=== PATIENT | male | born 1950 | race Caucasian/White ===

== ENCOUNTER → 2017-02-15 | Outpatient (CLI) | payer OTHER, BC | LOC: BHFA 09:00 | PROVIDERS: ATTEND Internal Medicine Cardiovascular Disease | DX: I25.10 Atherosclerotic heart disease of native coronary artery without angina pectoris (principal); R00.2 Palpitations ==

== ENCOUNTER 2017-04-10 01:31 | Inpatient (IN) | payer OTHER, BC ==
[2017-04-10] MEDS ORDERED: NS 1,000 ML IV ONE (01:49)
--- NOTE | 2017-04-10 01:50 | EDPHY ---
H & P Stated Complaint: chest pain HPI/ROS: HPI CHIEF COMPLAINT: Chest pain HISTORY OF PRESENT ILLNESS: This patient is 66-year-old male he presents emergency room with chest discomfort. Patient states that this started this evening. Describes a burning sensation in the middle of his chest. It radiates through his chest. States he had a very heavy meal this evening. He has a hiatal hernia he thinks hiatal hernia is acting up. The pain does go to his back. He has not had any vomiting. Denies shortness of breath. He denies any heart disease or lung disease or history of stroke. Patient states he has a hiatal hernia. Burning sensation in his chest. Past Medical History: Hiatal hernia, hypertension, hyperlipidemia Past Surgical History: Appendectomy Social History: Denies daily use drugs alcohol tobacco products. Locally. Family History: Noncontributory ROS REVIEW OF SYSTEMS: A comprehensive 10 point review of systems is otherwise negative aside from elements mentioned in the history of present illness. Exam Constitutional triage nursing summary reviewed, vital signs reviewed, awake/ alert. Eyes normal conjunctivae and sclera, EOMI, PERRLA. HENT normal inspection, atraumatic, moist mucus membranes, no epistaxis, neck supple/ no meningismus, no raccoon eyes. Respiratory clear to auscultation bilaterally, normal breath sounds, no respiratory distress, no wheezing. Cardiovascular rate normal, regular rhythm, no murmur, no edema, distal pulses normal. Gastrointestinal soft, non-tender, no rebound, no guarding, normal bowel sounds, no distension, no pulsatile mass. Genitourinary no CVA tenderness. Musculoskeletal no midline vertebral tenderness, full range of motion, no calf swelling, no tenderness of extremities, no meningismus, good pulses, neurovascularly intact. Skin pink, warm, & dry, no rash, skin atraumatic. Neurologic awake, alert and oriented x 3, AAOx3, moves all 4 extremities equally, motor intact, sensory intact, CN II-XII intact, normal cerebellar, normal vision, normal speech. Psychiatric normal mood/affect. Heme/Lymph/Immune no lymphadenopathy. Differential diagnosis includes but is not limited to: ACS, atypical chest pain , pneumothorax, pneumonia, pulmonary embolism, aortic dissection, congestive heart failure, tumor, musculoskeletal pain, esophageal pain, GERD, peptic ulcer disease, pancreatitis Medical Decision Making: Plan for this patient full monitoring engineer, IV establishment with IV fluid bolus, EKG, chest x-ray, blood work including troponin. Rule out acute coronary syndrome. Re-evaluation: Patient reports that approximately 10-12 years ago he did have a cardiac catheterization. He is followed by Dr. Dylan Carty. EKG interpretation by me on record in [employer] system. Impression time of EKG 1:45 a.m., this is a junctional tachycardia rate of 148. T-wave abnormalities in the lateral leads specifically lead 1, aVL, V4, V5 V6. Biphasic T-waves V2 V3. No old EKG to compare this to. No ST elevation. 0204: Will consult Dr. Dylan Carty. 0252: I spoke with Dr. Franc Vergara who reviewed this EKG. He believes this is SVT with aberrancy. Recommends adenosine versus cardioversion. I discussed this at length with the patient patient agrees for adenosine 1st to see if we can break his cardiac arrhythmia. He is having some chest discomfort. His troponin is noted to be positive. 0325AM: This patient was given 6 mg IV adenosine. This slowed his heart rate down. Underlying atrial flutter rhythm present. Additionally he went back into SVT at 150 beats per minute. He tolerated the adenosine push very well. He was given another 12 mg of adenosine which gave him a rather long pause with underlying a flutter. He returned back to heart rate of 150s. Did consult Dr. Franc Vergara again. He reviewed the rhythm strip underlying a flutter. Recommends diltiazem and diltiazem drip. Patient be admitted to the hospitalist service for elevated troponin SVT most likely underlying a flutter. ED x-ray chest one view: Negative for acute cardiopulmonary disease. 0354: Re-evaluation this patient at this time. No acute distress. Chest pain- free. Admitted to the hospitalist service for SVT with a positive troponin. 1 milligram/kilogram of Lovenox was given. I spoke with Dr. gupta who agrees to admit this patient. Spoke with Dr. Franc Vergara him multiple times about this patient's case. Source: Patient - Personal History Current Tetanus Diphtheria and Acellular Pertussis (TDAP): Yes - Medical/Surgical History Hx Asthma: No Hx Chronic Respiratory Disease: No Hx Diabetes: No Hx Cardiac Disease: Yes Hx Renal Disease: No Hx Cirrhosis: No Hx Alcoholism: No Hx HIV/AIDS: No Hx Splenectomy or Spleen Trauma: No Other PMH: hiatial hernia - Social History Smoking Status: Never smoked Constitutional: Initial Vital Signs Temperature (C) 36.6 C 04/10/17 01:36 Heart Rate 149 H 04/10/17 01:36 Respiratory Rate 16 04/10/17 01:36 Blood Pressure 161/110 H 04/10/17 01:36 O2 Sat (%) 98 04/10/17 01:36 O2 Delivery Mode Room Air Allergies/Adverse Reactions: ciprofloxacin [From Cipro] Allergy (Severe, Verified 04/10/17 08:42) Hives Home Medications: Medication Instructions Recorded Aspirin EC [Aspirin EC 81 mg (*)] 81 mg PO DAILY 04/10/17 Atorvastatin Calcium [Lipitor 20 20 mg PO DAILY 04/10/17 mg (*)] Omeprazole [Prilosec 20 mg] 20 mg PO DAILY 04/10/17 Apixaban [Eliquis] 5 mg PO BID #60 tab 04/11/17 Metoprolol Succinate Xr [Toprol Xl 25 mg PO BID #60 tab.sr 04/11/17 25 mg (*)] Medical Decision Making - Data Points Laboratory Results: Laboratory Results 04/10/17 01:55 04/10/17 01:55 Medications Given: Discontinued Medications Adenosine (Adenosine) 6 mg IVP EDNOW ONE Stop: 04/10/17 02:58 Last Admin: 04/10/17 02:59 Dose: 6 mg Adenosine (Adenosine) 12 mg IVP EDNOW ONE Stop: 04/10/17 03:25 Last Admin: 04/10/17 03:26 Dose: 12 mg Al Hydroxide/Mg Hydroxide (Maalox Susp) 30 ml PO ONCE ONE Stop: 04/10/17 02:01 Last Admin: 04/10/17 02:07 Dose: 30 ml Aspirin Buffered (Aspirin Ec) 325 mg PO ONCALL ONE Stop: 04/10/17 12:28 Last Admin: 04/11/17 18:09 Dose: Not Given Aspirin Buffered (Aspirin Ec) 81 mg PO DAILY SHANE Stop: 10/08/17 08:59 Last Admin: 04/11/17 18:09 Dose: Not Given Atorvastatin Calcium (Lipitor) 20 mg PO DAILY [facility] Stop: 10/08/17 08:59 Last Admin: 04/11/17 18:09 Dose: Not Given Carvedilol (Coreg) 3.125 mg PO BIDMEAL SHANE Stop: 10/07/17 11:14 Last Admin: 04/11/17 18:09 Dose: Not Given Diltiazem HCl (Cardizem 25 Mg/5 Ml Vial) 10 mg IVP EDNOW ONE Stop: 04/10/17 03:24 Last Admin: 04/10/17 03:27 Dose: 10 mg Enoxaparin Sodium (Lovenox) 70 mg SC EDNOW ONE Stop: 04/10/17 04:01 Last Admin: 04/10/17 04:03 Dose: 70 mg Enoxaparin Sodium (Lovenox) 70 mg SC ONCE ONE Stop: 04/10/17 16:01 Last Admin: 04/10/17 15:51 Dose: 70 mg Hyoscyamine Sulfate (Levsin, Hyomax-Sl) 0.25 mg PO ONCE ONE Stop: 04/10/17 02:01 Last Admin: 04/10/17 02:07 Dose: 0.25 mg Sodium Chloride (Ns) 1,000 mls @ 0 mls/hr IV EDNOW ONE; Wide Open PRN Reason: Protocol Stop: 04/10/17 01:50 Last Admin: 04/10/17 02:07 Dose: 1,000 mls Diltiazem HCl 125 mg/ Dextrose 125 mls @ 0 mls/hr IV EDNOW ONE; Titrate PRN Reason: Protocol Stop: 04/10/17 03:24 Last Admin: 04/10/17 03:43 Dose: 125 mls Sodium Chloride (Ns) 1,000 mls @ 75 mls/hr IV CONT SHANE Stop: 10/07/17 04:44 Last Admin: 04/10/17 05:17 Dose: 1,000 mls Diltiazem HCl 125 mg/ Dextrose 125 mls @ 0 mls/hr IV CONT SHANE; Per Protocol PRN Reason: Protocol Stop: 10/07/17 04:44 Last Admin: 04/10/17 05:17 Dose: 125 mls Lidocaine (Lidocaine 2% Viscous) 15 ml PO ONCE ONE Stop: 04/10/17 02:01 Last Admin: 04/10/17 02:07 Dose: 15 ml Pantoprazole Sodium (Protonix) 40 mg PO DAILY SHANE Stop: 10/08/17 08:59 Last Admin: 04/11/17 18:10 Dose: Not Given Temazepam (Restoril) 15 mg PO HS PRN PRN Reason: Sleep/Insomnia Stop: 10/07/17 12:26 Last Admin: 04/10/17 21:11 Dose: 15 mg Departure - Departure Disposition: [facility] Acute Clinical Impression: SVT (supraventricular tachycardia), Troponin I above reference range Condition: Fair
[2017-04-10] MEDS ORDERED: MAG HYDROX/AL HYDROX/SIMETH 30 ML UDCUP PO ONE (02:00)
[2017-04-10] MEDS ORDERED: HYOSCYAMINE SULFATE 0.125 MG TAB PO ONE (02:00)
[2017-04-10] MEDS ORDERED: LIDOCAINE 2% VISCOUS 15 ML UDCUP PO ONE (02:00)
[2017-04-10 02:06] LABS: % IMMATURE GRANULYOCYTES 0.4 % (0.0-1.1); ABSOLUTE IMMATURE GRANULOCYTES 0.06 10^3/uL (0.00-0.10); ADD DIFF? NO; ADD MORPH? NO; ADD SCAN? NO; ATYPICAL LYMPHOCYTE FLAG 0 (0-99); FRAGMENT RBC FLAG 0 (0-99); HEMATOCRIT 44.3 % (40.0-51.0); HEMOGLOBIN 15.5 g/dL (13.7-17.5); LEFT SHIFT FLG 0 (0-99); LIPEMIA HEMOLYSIS FLAG 90 (0-99); MEAN CELL HEMOGLOBIN 29.8 pg (27.9-34.1); MEAN CELL VOLUME 85.2 fL (81.5-99.8); MEAN PLATELET VOLUME 10.9 fL (8.7-11.7); PLATELET CLUMPS FLAG 0 (0-99); PLATELET COUNT 214 10^3/uL (150-400)
[2017-04-10 02:15] LABS: APTT 29.1 SEC (23.0-38.0); PROTIME(PATIENT) 13.1 SEC (12.0-15.0)
[2017-04-10 02:21] LABS: ALANINE AMINOTRANSFERASE 51 IU/L (21-72); ALBUMIN 4.6 g/dL (3.5-5.0); ALKALINE PHOSPHATASE 71 IU/L (38-126); ANION GAP 13 mEq/L (8-16); ASPARTATE AMINOTRANSFERASE 32 IU/L (17-59); BILIRUBIN,TOTAL 0.6 mg/dL (0.1-1.4); BILIRUBIN-CONJUGATED 0.4 mg/dL (0.0-0.5); BILIRUBIN-UNCONJUGATED 0.2 mg/dL (0.0-1.1); CARBON DIOXIDE 20 mEq/l (22-31); CHLORIDE 105 mEq/L (97-110); GLOMERULAR FILTRATION RATE > 60; GLUCOSE 109 mg/dL (70-100); MAGNESIUM 1.8 mg/dL (1.6-2.3); POTASSIUM 3.9 mEq/L (3.5-5.2); SODIUM 138 mEq/L (134-144); TOTAL PROTEIN 7.3 g/dL (6.3-8.2)
[2017-04-10 02:33] LABS: TROPONIN I 0.108 ng/mL (0.000-0.034)
[2017-04-10 02:39] LABS: CREATINE KINASE-MB FRACTION 7.11 ng/mL (0.00-3.19)
[2017-04-10 02:41] LABS: CK-MB INTERPRETATION POSITIVE (NEGATIVE)
[2017-04-10] MEDS ORDERED: ADENOSINE 6 MG/2 ML VIAL ONE (02:50)
[2017-04-10] MEDS ORDERED: ADENOSINE 6 MG/2 ML VIAL IVP ONE ×2 (02:57→03:24)
--- NOTE | 2017-04-10 03:20 | CPEKG ---
Heart Rate: 76 RR Interval: 789 QRSD Interval: 112 QT Interval: 412 QTC Interval: 464 QRS Kellogg: 36 T Wave Kellogg: 184 EKG Severity - ABNORMAL ECG - EKG Impression: Coarse atrial fibrillation EKG Impression: MULTIFORM VENTRICULAR PREMATURE COMPLEXES EKG Impression: LVH WITH IVCD AND SECONDARY REPOL ABNRM Electronically Signed By: Dario Gonzalez 10-Apr-2017 13:45:53
[2017-04-10] MEDS ORDERED: DILTIAZEM 25 MG/5 ML VIAL IVP ONE (03:23)
[2017-04-10] MEDS ORDERED: METOPROLOL TARTRATE 5 MG/5 ML INJ ONE (03:23)
[2017-04-10] MEDS ORDERED: DILTIAZEM 125 MG in D5W 125 ML IV ONE (03:23)
[2017-04-10] MEDS ORDERED: ENOXAPARIN 60 MG/0.6 ML SYR SC ONE (03:45)
[2017-04-10] MEDS ORDERED: ENOXAPARIN 80 MG/0.8 ML SYR SC ONE ×3 (04:00→16:00)
[2017-04-10] MEDS ORDERED: diphenhydrAMINE 25 MG CAP PO PRN (04:36)
[2017-04-10] MEDS ORDERED: ACETAMINOPHEN 325 MG TAB PO PRN (04:36)
[2017-04-10] MEDS ORDERED: HYDROCODONE/APAP 5/325 TAB PO PRN (04:36)
[2017-04-10] MEDS ORDERED: LORazepam 0.5 MG TAB PO PRN (04:36)
[2017-04-10] MEDS ORDERED: ONDANSETRON 4 MG/2 ML VIAL IVP PRN (04:36)
[2017-04-10] MEDS ORDERED: NS 1,000 ML IV SCH (04:45)
[2017-04-10] MEDS ORDERED: DILTIAZEM 125 MG in D5W 125 ML IV SCH (04:45)
--- NOTE | 2017-04-10 07:03 | GHP ---
[f rep st] HISTORY AND PHYSICAL DATE OF ADMISSION: 04/10/2017 SOURCE: Patient provides history, appears quite reliable. His EMR was reviewed and case discussed w ith ED provider. CHIEF COMPLAINT: Chest pain and palpitations. HISTORY OF PRESENT ILLNESS: This is a very pleasant 66-year-old gentleman with past medical history significant for episodes of SVT, hiatal hernia, GERD, esophagitis, hyperlipidemia, hypertension, who presents to the emergency department today with complaints of ongoing chest pain since approximately 10 p.m. Patient reports that he had just had a large celebratory meal with his spouse that included high fatty foods and a few alcoholic beverages, which are known triggers for worsening his reflux sym ptoms and subsequently developing palpitations. Patient initially thought most of his symptoms could be attributed to his reflux and he attempted to take a Zantac and an additional Prilosec, and hoped that the symptoms would resolve after several hours. Patient, however, noted that the symptoms today were notably different. He denied any associated shortness of breath, but did have significant diap horesis, no lightheadedness, but he did have some nausea without any vomiting. Patient also describe d the pain to be different. In addition to the typical palpitations, patient reports that he had kaden e substernal burning. In addition, the newer symptoms were sharp, intermittent chest pains. Patient denies any radiating pain to arms, jaw, or neck. But patient states that he felt very restless and that he could keep his extremities still. After approximately 2 hours of symptoms, patient presented to the emergency department for further evaluation. REVIEW OF SYSTEMS: GENERAL: Patient denies any fevers or chills. Diaphoretic episodes as noted abo ve. SKIN: No rashes, sores. ENT: No congestion, sore throat. EYES: No acute changes in vision. Patient does wear glasses. CV: Chest pain, palpitations, as noted above. He denies any orthopnea, lower extremity edema, but does have a history of snoring and PND. RESPIRATORY: Patient denies any shortness of breath or cough. GI: Nausea as noted above. No diarrhea or abdominal pain. : No dysuria, hematuria. MUSCULOSKELETAL: Patient denies any acute myalgias or joint pain at this time. He does report restlessness, as noted above. NEURO: Patient reports some mild headache. No acute changes in vision. No numbness or tingling. PSYCH: No anxiety, depression. Remainder review of systems negative except as above. ALLERGIES: Cipro; patient develops hives. HOME MEDICATIONS: Prilosec 20 mg p.o. daily (down from 40), metoprolol, and Lipitor. 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 FAMILY HISTORY: Significant for father with history of CAD, [place], age 67, and a paternal uncl e also with cardiac at age 40s. SOCIAL HISTORY: Patient lives with his partner. He does not smoke. He drinks occasionally 1-2 glas ses of wine or beer 5 times weekly, but not on a daily basis. He also uses occasional marijuana. CODE STATUS: Full. Patient does have advanced directives and his partner is MD CASTILLO. PHYSICAL EXAMINATION: VITAL SIGNS: On arrival to the ER, temperature 36.6, heart rate was noted to be 149, blood pressure 161/110, pulse ox 98% on room air. Current vitals: Temperature 36.6, blood p ressure 130/78, heart rate currently 90s on the monitor, documented under vitals 120, O2 sat 92% on r oom air. GENERAL: No acute distress. Very pleasant adult gentleman is lying quietly in bed. He is in good spirits. HEAD: Normocephalic, atraumatic. EYES: Extraocular muscles grossly intact. Pup ils equal, symmetric. No scleral icterus or conjunctival injection. Glasses on. ENT: Mucous membr anes appear moist. Intact dentition. NECK: Supple. Trachea midline. CV: Slightly tachycardic wi th occasional irregular beat. No murmurs, rubs, or gallops appreciated. No chest wall tenderness to palpation. RESPIRATORY: Lungs are clear to auscultation bilaterally. No wheezes, rales, or rhonch i. Nonlabored breathing. ABDOMEN: Positive bowel sounds. Soft, nontender to palpation. No reboun d, guarding, or masses appreciated. : No Wilkinson in place. No suprapubic tenderness to palpation. MUSCULOSKELETAL: Strength grossly intact. Patient moves all extremities and sits up independently. NEURO: Grossly nonfocal without any facial drooping and no focal weakness in extremities. PSYCH: Patient's thought process, content and questions are all appropriate, and patient is pleasant and in good spirits. LABORATORY STUDIES: WBC 14.1, H and H 15.5/44.3, MCV of 85.2, platelet count is 214, neutrophils 77. 2, no bands. PT is 13.1, INR is 1.0, PTT is 29.1. Sodium is 138, potassium is 3.9, chloride is 105, CO2 is 20, anion gap 13, BUN 18, creatinine 1.0, GFR greater than 60, glucose 109, calcium is 10.0, magnesium 1.8, total bili 0.6, ALT 51, AST 32, alk phos 71. CK is 140, CK-MB is 7.11, troponin 0.108 . BNP is 560. Total protein 7.3, albumin is 4.6, lipase 122. EKG: Reviewed myself. Showing A flutter with PVCs, LVH, with T-wave inversions, likely repole abnor malities versus ischemia. No acute ST elevations. Chest x-ray: Image reviewed myself. Report is pending. Shows no acute infiltrates. ASSESSMENT AND PLAN: This is a very pleasant 66-year-old gentleman who presents with palpitations an d chest pain. 1. Chest pain. Is likely related to patient's history of supraventricular tachycardia and atrial fl utter. Troponin was noted to be elevated and this could represent demand in setting of tachycardia. Patient received adenosine in the emergency department with improved ventricular response that was n onsustained. He was subsequently started on Cardizem drip; now with heart rate in the 90s. He was g iven therapeutic dose of Lovenox. We will trend the cardiac enzymes. Cardiology was already consult ed and will see the patient today. Patient's primary ems director on outpatient basis is Dr. Carty. Will continue the Cardizem drip overnight. Chest pain has currently resolved and will defer repeat ing an echocardiogram to Cardiology team as he is followed quite closely at [facility]. 2. Atrial flutter. Further plan as above. 3. Elevated troponin. Continue to trend. Status post therapeutic Lovenox in the emergency departme nt. 4. Leukocytosis. Is likely reactive in setting of arrhythmia as above. 5. Benign essential hypertension. Blood pressures have improved. Monitor on the Cardizem drip. 6. Hyperlipidemia. Continue statin therapy. 7. Gastroesophageal reflux disease with history of hiatal hernia. Protonix will be continued. 8. History of snoring. Recommended that patient followup with PCP and consider repeating nocturnal pulse oximetry versus sleep study as it has been more than 10 years. Patient reports this was inconc lusive, but did not have any further testing. 9. Fluid, electrolyte, nutrition. IV fluids overnight for gentle hydration. Cardiac diet has been ordered. Electrolyte replacement if needed. 10. Prophylaxis. SCDs, status post therapeutic Lovenox and PPI. 11. Code status is full. Patient's spouse is MD CASTILLO. DISPOSITION: Patient has been admitted to inpatient status on the PCU floor with continued requireme nt for Cardizem drip, rate control, and cardiology consultation. /[id number]/MODL
[2017-04-10 07:14] LABS: MAGNESIUM 1.9 mg/dL (1.6-2.3)
[2017-04-10 07:26] LABS: CK-MB INTERPRETATION POSITIVE (NEGATIVE)
--- NOTE | 2017-04-10 07:45 | PDMN ---
Medical Necessity Medical necessity: C/M review: est. > 2 MN LOS for eval and TX of acute chest pain, atrial flutter, tachycardia, elevated troponin requiring planned Cardiology consult, ongoing IV Diltiazem infusion, cardiac monitoring, pulse oximetry, comorbid SVT, hiatal hernia with GERD, esophagitis, hypertension, hyperlipidemia, hx of snoring per H/P.
--- NOTE | 2017-04-10 09:30 | CPEKG ---
Heart Rate: 72 RR Interval: 833 P-R Interval: 86 QRSD Interval: 116 QT Interval: 468 QTC Interval: 513 P Canones: 262 QRS Canones: 37 T Wave Canones: 162 EKG Severity - ABNORMAL ECG - EKG Impression: ECTOPIC ATRIAL RHYTHM EKG Impression: SHORT MN INTERVAL, ACCELERATED AV CONDUCTION EKG Impression: LVH WITH IVCD AND SECONDARY REPOL ABNRM Electronically Signed By: Dario Gonzalez 10-Apr-2017 10:14:00
[2017-04-10] MEDS: CARVEDILOL 3.125 MG TAB PO SCH ×2 (11:24→17:08)
--- NOTE | 2017-04-10 12:21 | PDCARCONS ---
Cardiology Consult Reason for Consult: Chest discomfort and epigastric discomfort. Atrial fibrillation. Apical hypertrophic cardiomyopathy Chief Complaint: Chest discomfort Requesting Physician: hospitalist team History of Present Illness: 66-year-old male who is followed by Dr. Carty in our clinic. He has a known history of apical hypertrophic cardiomyopathy and has complained of palpitations in the past. Yesterday evening he had a large fatty meal and also some alcohol. He started feeling severe epigastric and lower left precordial discomfort which lasted for about 2-3 hours until it resolved spontaneously in the emergency department. He has had similar symptoms in the past which have been resolved with antacids and Zantac and he tried to take that without resolution of his symptoms. The symptoms were more severe and lasted for a longer duration than his prior heartburn. He did have palpitations which are described as irregular palpitations . He has not had syncope. He has had these symptoms before and had Holter monitoring in our office which showed nonsustained atrial tachycardia. History Information - Allergies/Home Medication List Allergies/Adverse Reactions: ciprofloxacin [From Cipro] Allergy (Severe, Verified 04/10/17 08:42) Hives Home Medications: Aspirin EC [Aspirin EC 81 mg (*)] 81 mg PO DAILY 04/10/17 [Last Taken 04/09/17] Atorvastatin Calcium [Lipitor 20 mg (*)] 20 mg PO DAILY 04/10/17 [Last Taken 12/19] Metoprolol Succinate Xr [Toprol Xl 25 mg (*)] 25 mg PO DAILY 04/10/17 [Last Taken 04/09/17] Omeprazole [Prilosec 20 mg] 20 mg PO DAILY 04/10/17 [Last Taken 04/09/17] I have personally reviewed and updated: family history, medical history, social history, surgical history Past Medical History: - Social History Smoking Status: Never smoked Physical Exam Physical Exam: Temp Pulse Resp BP Pulse Ox 36.9 C 73 15 131/81 H 97 04/10/17 11:16 04/10/17 11:16 04/10/17 11:16 04/10/17 11:16 04/10/17 11:16 Constitutional: no apparent distress, appears nourished Eyes: PERRL, anicteric sclera Ears, Nose, Mouth, Throat: moist mucous membranes, hearing normal Cardiovascular: regular rate and rhythym, no murmur, rub, or gallop Respiratory: no respiratory distress Gastrointestinal: normoactive bowel sounds, soft, non-tender abdomen Skin: warm, normal color Neurologic: AAOx3 Psychiatric: interacting appropriately, not anxious, not encephalopathic, thought process linear Lab and Imaging 04/10/17 01:55 04/10/17 01:55 WBC 14.18 10^3/uL (3.80-9.50) H 04/10/17 01:55 RBC 5.20 10^6/uL (4.40-6.38) 04/10/17 01:55 Hgb 15.5 g/dL (13.7-17.5) 04/10/17 01:55 Hct 44.3 % (40.0-51.0) 04/10/17 01:55 MCV 85.2 fL (81.5-99.8) 04/10/17 01:55 MCH 29.8 pg (27.9-34.1) 04/10/17 01:55 MCHC 35.0 g/dL (32.4-36.7) 04/10/17 01:55 RDW 12.0 % (11.5-15.2) 04/10/17 01:55 Plt Count 214 10^3/uL (150-400) 04/10/17 01:55 MPV 10.9 fL (8.7-11.7) 04/10/17 01:55 Neut % (Auto) 77.2 % (39.3-74.2) H 04/10/17 01:55 Lymph % (Auto) 15.4 % (15.0-45.0) 04/10/17 01:55 Hall % (Auto) 5.8 % (4.5-13.0) 04/10/17 01:55 Eos % (Auto) 0.4 % (0.6-7.6) L 04/10/17 01:55 Baso % (Auto) 0.8 % (0.3-1.7) 04/10/17 01:55 Nucleat RBC Rel Count 0.0 % (0.0-0.2) 04/10/17 01:55 Absolute Neuts (auto) 10.95 10^3/uL (1.70-6.50) H 04/10/17 01:55 Absolute Lymphs (auto) 2.18 10^3/uL (1.00-3.00) 04/10/17 01:55 Absolute Monos (auto) 0.82 10^3/uL (0.30-0.80) H 04/10/17 01:55 Absolute Eos (auto) 0.06 10^3/uL (0.03-0.40) 04/10/17 01:55 Absolute Basos (auto) 0.11 10^3/uL (0.02-0.10) H 04/10/17 01:55 Absolute Nucleated RBC 0.00 10^3/uL (0-0.01) 04/10/17 01:55 Immature Gran % 0.4 % (0.0-1.1) 04/10/17 01:55 Immature Gran # 0.06 10^3/uL (0.00-0.10) 04/10/17 01:55 PT 13.1 SEC (12.0-15.0) 04/10/17 01:55 INR 1.00 (0.83-1.16) 04/10/17 01:55 APTT 29.1 SEC (23.0-38.0) 04/10/17 01:55 Sodium 138 mEq/L (134-144) 04/10/17 01:55 Potassium 3.9 mEq/L (3.5-5.2) 04/10/17 01:55 Chloride 105 mEq/L (97-110) 04/10/17 01:55 Carbon Dioxide 20 mEq/l (22-31) L 04/10/17 01:55 Anion Gap 13 mEq/L (8-16) 04/10/17 01:55 BUN 18 mg/dL (7-23) 04/10/17 01:55 Creatinine 1.0 mg/dL (0.7-1.3) 04/10/17 01:55 Estimated GFR > 60 04/10/17 01:55 Glucose 109 mg/dL (70-100) H 04/10/17 01:55 Calcium 10.0 mg/dL (8.5-10.4) 04/10/17 01:55 Magnesium 1.9 mg/dL (1.6-2.3) 04/10/17 06:50 Total Bilirubin 0.6 mg/dL (0.1-1.4) 04/10/17 01:55 Conjugated Bilirubin 0.4 mg/dL (0.0-0.5) 04/10/17 01:55 Unconjugated Bilirubin 0.2 mg/dL (0.0-1.1) 04/10/17 01:55 AST 32 IU/L (17-59) 04/10/17 01:55 ALT 51 IU/L (21-72) 04/10/17 01:55 Alkaline Phosphatase 71 IU/L (38-126) 04/10/17 01:55 Creatine Kinase 515 IU/L (0-224) H 04/10/17 06:50 CK-MB (CK-2) Fraction 61.90 ng/mL (0.00-3.19) H 04/10/17 06:50 CK-MB (CK-2) % 12.0 % (0.0-4.0) H 04/10/17 06:50 Creatine Kinase Interp POSITIVE (NEGATIVE) H 04/10/17 06:50 Troponin I 9.600 ng/mL (0.000-0.034) H 04/10/17 06:50 NT-Pro-B Natriuret Pep 560 pg/mL (0-125) H 04/10/17 01:55 Total Protein 7.3 g/dL (6.3-8.2) 04/10/17 01:55 Albumin 4.6 g/dL (3.5-5.0) 04/10/17 01:55 Lipase 122 IU/L (23-300) 04/10/17 01:55 TSH 2.010 uIU/mL (0.465-4.680) 04/10/17 06:50 Visualized and Interpreted EKG results: Yes EKG Interpretation: Positive for: LVH, T waves inversion Telemetry: Low atrial rhythm. Initial presentation was with atrial flutter / atrial tachycardia followed by atrial fibrillation. A/P Assessment: Apical hypertrophic cardiomyopathy Chest discomfort Atrial flutter/ atrial tachycardia Atrial fibrillation Hypertension Plan: 66-year-old male with apical hypertrophic cardiomyopathy who is presenting with sustained atrial flutter / atrial tachycardia and atrial fibrillation. Currently he is in a low atrial rhythm. This is likely the result of him being on IV Cardizem which will be stopped. As regards chest discomfort, his troponin levels are elevated to more than 9 . Echocardiogram is pending at the time of this dictation. EKG shows LVH and lateral T-wave inversions which could be consistent with either apical hypertrophic cardiomyopathy or myocardial ischemia. He is currently chest pain- free and hemodynamically stable. He will be treated with Lovenox 1 milligram/ kilogram subcutaneously twice daily. Last dose will be given this evening. He will be started on beta-blockers this morning. Given his chest and epigastric discomfort along with EKG changes and troponin elevation, coronary angiography is recommended. We discussed the fact that this could represent either obstructive coronary artery disease or demand supply mismatch given his apical hypertrophic cardiomyopathy. He has had coronary angiogram with Dr. Carty in the past which showed nonobstructive coronary artery disease. Risks of coronary angiography including , mi, CVA , cardiac tamponade, vascular access complications, infection etc were discussed with him. He had large groin hematoma according to his history after his prior coronary angiogram, he would prefer that angiography done through the radial approach and I have talked to Dr. Vergara who is going to perform angiography via radial approach tomorrow morning. Complex discussion, 45 minutes spent with patient. As an alternative to coronary angiography we discussed medical treatment only but given his constellation of symptoms physical examination lab tests both he and I feel that coronary angiography is the preferred approach.
[2017-04-10] MEDS ORDERED: TEMAZEPAM 15 MG CAP PO PRN (12:27)
[2017-04-10] MEDS ORDERED: NITROGLYCERIN 0.4 MG BTL SL PRN (12:27)
[2017-04-10] MEDS ORDERED: ASPIRIN EC 325 MG TAB PO ONE (12:27)
[2017-04-10] MEDS ORDERED: NON-FORMULARY NEW DRUG (Omeprazole [Prilosec 20 Mg] 20 MG) PO SCH (15:30)
--- NOTE | 2017-04-10 15:31 | HOSPPROG ---
Hospitalist Progress Note Assessment/Plan: # NSTEMI - lovenox, angiogram tomorrow # a-fib/flutter - lovenox, coreg started # apical hypertrophic cardiomyopathy # GERD - ppi # leukocytosis - stress reaction, recheck tomorrow 35 minutes direct face to face patient care time from 2:55-3:30p Subjective: no CP currently Objective: Vital Signs Temp Pulse Resp BP Pulse Ox 36.9 C 73 15 131/81 H 97 04/10/17 11:16 04/10/17 11:16 04/10/17 11:16 04/10/17 11:16 04/10/17 11:16 04/09/17 04/10/17 04/11/17 05:59 05:59 05:59 Intake Total 140 Balance 140 PT 13.1 SEC (12.0-15.0) 04/10/17 01:55 INR 1.00 (0.83-1.16) 04/10/17 01:55 - Physical Exam Constitutional: no apparent distress, appears nourished ICD10 Worksheet Patient Problems: Problems Problem Status Onset SVT (supraventricular tachycardia) Acute Troponin I above reference range Acute
[2017-04-10] MEDS ORDERED: ENOXAPARIN 80 MG/0.8 ML SYR SC SCH (16:00)
--- NOTE | 2017-04-10 16:10 | ASMTCMCOM ---
CM Note CM Note Notes: Reviewed chart re: d/c poc, pt's progress. Pt admitted w/ CP and palpitations; scheduled for heart cath 04/11/17 at 1000. Discharge needs remain TBD. Anticipate pt will d/c home w/ family support and no needs. CM will cont to follow. Date Signed: 04/10/2017 04:10 PM Electronically Signed By:Madina Cardoza RN
[2017-04-11 05:33] LABS: % IMMATURE GRANULYOCYTES 0.3 % (0.0-1.1); ABSOLUTE IMMATURE GRANULOCYTES 0.03 10^3/uL (0.00-0.10); ADD DIFF? NO; ADD MORPH? NO; ADD SCAN? NO; ATYPICAL LYMPHOCYTE FLAG 10 (0-99); FRAGMENT RBC FLAG 0 (0-99); HEMATOCRIT 41.5 % (40.0-51.0); LEFT SHIFT FLG 0 (0-99); LIPEMIA HEMOLYSIS FLAG 80 (0-99); MEAN CELL HEMOGLOBIN 29.9 pg (27.9-34.1); MEAN CELL HEMOGLOBIN CONCENTR. 33.7 g/dL (32.4-36.7); MEAN CELL VOLUME 88.7 fL (81.5-99.8); MEAN PLATELET VOLUME 11.8 fL (8.7-11.7); PLATELET CLUMPS FLAG 0 (0-99); PLATELET COUNT 181 10^3/uL (150-400); RED BLOOD CELL COUNT 4.68 10^6/uL (4.40-6.38); RED CELL DISTRIBUTION WIDTH 12.3 % (11.5-15.2)
[2017-04-11 05:50] LABS: ANION GAP 8 mEq/L (8-16); CALCIUM 9.7 mg/dL (8.5-10.4); CARBON DIOXIDE 26 mEq/l (22-31); CHLORIDE 105 mEq/L (97-110); GLOMERULAR FILTRATION RATE > 60; GLUCOSE 83 mg/dL (70-100); SODIUM 139 mEq/L (134-144)
--- NOTE | 2017-04-11 08:08 | PDPROPOC ---
Sedation Plan of Care Sedation Plan of Care: vital signs stable, mental status noted, patient educated of risks, benefits, alternatives, patient can tolerate sedation ASA Classification: ASA 1 Planned drugs: fentanyl, midazolam Mallampati Score: Class 2 Mallampati Reference Image: Patient passed 3-3-2 rule?: Yes
--- NOTE | 2017-04-11 08:09 | PDHPUP ---
History & Physical Update H&P update statement: This history and physical update is based on an assessment of the patient which was completed after admission or registration (within 24 hours), but prior to the surgery/procedure. H&P update: H&P reviewed & patient examined, no change in patient's condition since H&P completed
[2017-04-11] MEDS: CARVEDILOL 3.125 MG TAB PO SCH ×2 (08:25→18:09)
[2017-04-11] MEDS ORDERED: ASPIRIN EC 81 MG TAB PO SCH (09:00)
[2017-04-11] MEDS ORDERED: ATORVASTATIN CALCIUM 20 MG TAB PO SCH (09:00)
[2017-04-11] MEDS ORDERED: PANTOPRAZOLE SODIUM 40 MG TAB PO SCH (09:00)
--- NOTE | 2017-04-11 09:47 | PDCARPN ---
Cardiology Progress Note Chief Complaint: Palpitations, chest discomfort and epigastric discomfort Assessment/Plan: Assessment: 1. Apical hypertrophic cardiomyopathy 2. Acute coronary syndrome 3. Atrial flutter/atrial tachycardia and atrial fibrillation 4. Hypertension Plan: 1. Coronary angiography today 2. Continue beta-lucia 3. [id number] Score is 2, he should be on Eliquis long-term. Post coronary angiography, start Eliquis 5 mg twice daily when okay with Dr. rFanc Vergara 04/11/17 09:46 Subjective: Feels well today, reports no chest discomfort Objective: Vital Signs (8 Hrs) Temp Pulse Resp BP Pulse Ox 04/11/17 07:30 36.7 C 70 18 134/80 H 96 04/11/17 04:00 36.6 C 71 16 122/82 H 96 Intake/Output (24 Hrs) 04/09/17 04/10/17 04/11/17 11:59 11:59 11:59 Intake Total 140 900 Balance 140 900 Intake: Oral (ml) 50 900 IV Infused (ml) 90 Diltiazem 125 mg In D5w 15 125 ml @ Per Protocol IV CONT SHANE Rx#:[id number] Ns 1,000 ml @ 75 mls/hr 75 IV CONT SHANE Rx#: [id number] Other: Weight 72.9 kg Number of Voids Toilet 1 4 Number of Stools Toilet 1 Result Diagrams: 04/11/17 04:28 04/11/17 04:28 Cardiac Labs: Cardiac Lab Results (72 Hrs) 04/10/17 04/10/17 15:57 06:50 CK-MB (CK-2) Fraction 61.90 H Troponin I 12.000 H 9.600 H Telemetry: Sinus rhythm ICD10 Worksheet Patient Problems: Problems Problem Status Onset SVT (supraventricular tachycardia) Acute Troponin I above reference range Acute
--- NOTE | 2017-04-11 09:57 | PDCARCONS ---
History Information - Allergies/Home Medication List Allergies/Adverse Reactions: ciprofloxacin [From Cipro] Allergy (Severe, Verified 04/10/17 08:42) Hives Home Medications: Aspirin EC [Aspirin EC 81 mg (*)] 81 mg PO DAILY 04/10/17 [Last Taken 04/09/17] Atorvastatin Calcium [Lipitor 20 mg (*)] 20 mg PO DAILY 04/10/17 [Last Taken 12/19] Metoprolol Succinate Xr [Toprol Xl 25 mg (*)] 25 mg PO DAILY 04/10/17 [Last Taken 04/09/17] Omeprazole [Prilosec 20 mg] 20 mg PO DAILY 04/10/17 [Last Taken 04/09/17] Past Medical History: - Social History Smoking Status: Never smoked Physical Exam Physical Exam: Temp Pulse Resp BP Pulse Ox 36.7 C 70 18 134/80 H 96 04/11/17 07:30 04/11/17 07:30 04/11/17 07:30 04/11/17 07:30 04/11/17 07:30 Lab and Imaging 04/11/17 04:28 04/11/17 04:28 WBC 9.06 10^3/uL (3.80-9.50) 04/11/17 04:28 RBC 4.68 10^6/uL (4.40-6.38) 04/11/17 04:28 Hgb 14.0 g/dL (13.7-17.5) 04/11/17 04:28 Hct 41.5 % (40.0-51.0) 04/11/17 04:28 MCV 88.7 fL (81.5-99.8) 04/11/17 04:28 MCH 29.9 pg (27.9-34.1) 04/11/17 04:28 MCHC 33.7 g/dL (32.4-36.7) 04/11/17 04:28 RDW 12.3 % (11.5-15.2) 04/11/17 04:28 Plt Count 181 10^3/uL (150-400) 04/11/17 04:28 MPV 11.8 fL (8.7-11.7) H 04/11/17 04:28 Neut % (Auto) 54.5 % (39.3-74.2) 04/11/17 04:28 Lymph % (Auto) 32.9 % (15.0-45.0) 04/11/17 04:28 [place] % (Auto) 10.6 % (4.5-13.0) 04/11/17 04:28 Eos % (Auto) 0.8 % (0.6-7.6) 04/11/17 04:28 Baso % (Auto) 0.9 % (0.3-1.7) 04/11/17 04:28 Nucleat RBC Rel Count 0.0 % (0.0-0.2) 04/11/17 04:28 Absolute Neuts (auto) 4.94 10^3/uL (1.70-6.50) 04/11/17 04:28 Absolute Lymphs (auto) 2.98 10^3/uL (1.00-3.00) 04/11/17 04:28 Absolute Monos (auto) 0.96 10^3/uL (0.30-0.80) H 04/11/17 04:28 Absolute Eos (auto) 0.07 10^3/uL (0.03-0.40) 04/11/17 04:28 Absolute Basos (auto) 0.08 10^3/uL (0.02-0.10) 04/11/17 04:28 Absolute Nucleated RBC 0.00 10^3/uL (0-0.01) 04/11/17 04:28 Immature Gran % 0.3 % (0.0-1.1) 04/11/17 04:28 Immature Gran # 0.03 10^3/uL (0.00-0.10) 04/11/17 04:28 PT 13.1 SEC (12.0-15.0) 04/10/17 01:55 INR 1.00 (0.83-1.16) 04/10/17 01:55 APTT 29.1 SEC (23.0-38.0) 04/10/17 01:55 Sodium 139 mEq/L (134-144) 04/11/17 04:28 Potassium 4.0 mEq/L (3.5-5.2) 04/11/17 04:28 Chloride 105 mEq/L (97-110) 04/11/17 04:28 Carbon Dioxide 26 mEq/l (22-31) D 04/11/17 04:28 Anion Gap 8 mEq/L (8-16) 04/11/17 04:28 BUN 14 mg/dL (7-23) 04/11/17 04:28 Creatinine 1.0 mg/dL (0.7-1.3) 04/11/17 04:28 Estimated GFR > 60 04/11/17 04:28 Glucose 83 mg/dL (70-100) 04/11/17 04:28 Calcium 9.7 mg/dL (8.5-10.4) 04/11/17 04:28 Magnesium 1.9 mg/dL (1.6-2.3) 04/10/17 06:50 Total Bilirubin 0.6 mg/dL (0.1-1.4) 04/10/17 01:55 Conjugated Bilirubin 0.4 mg/dL (0.0-0.5) 04/10/17 01:55 Unconjugated Bilirubin 0.2 mg/dL (0.0-1.1) 04/10/17 01:55 AST 32 IU/L (17-59) 04/10/17 01:55 ALT 51 IU/L (21-72) 04/10/17 01:55 Alkaline Phosphatase 71 IU/L (38-126) 04/10/17 01:55 Creatine Kinase 515 IU/L (0-224) H 04/10/17 06:50 CK-MB (CK-2) Fraction 61.90 ng/mL (0.00-3.19) H 04/10/17 06:50 CK-MB (CK-2) % 12.0 % (0.0-4.0) H 04/10/17 06:50 Creatine Kinase Interp POSITIVE (NEGATIVE) H 04/10/17 06:50 Troponin I 12.000 ng/mL (0.000-0.034) H 04/10/17 15:57 NT-Pro-B Natriuret Pep 560 pg/mL (0-125) H 04/10/17 01:55 Total Protein 7.3 g/dL (6.3-8.2) 04/10/17 01:55 Albumin 4.6 g/dL (3.5-5.0) 04/10/17 01:55 Lipase 122 IU/L (23-300) 04/10/17 01:55 TSH 2.010 uIU/mL (0.465-4.680) 04/10/17 06:50
[2017-04-11 11:23] VITALS: RESP 16
[2017-04-11] MEDS ORDERED: MIDAZOLAM 2 MG/2 ML VIAL ONE (12:44)
[2017-04-11] MEDS ORDERED: fentaNYL 100 MCG/2 ML INJ ONE (12:44)
[2017-04-11] MEDS ORDERED: LIDOCAINE 1% 300 MG/30 ML SDV ONE (12:44)
[2017-04-11] MEDS ORDERED: VERAPAMIL 5 MG/2 ML VIAL ONE (12:45)
[2017-04-11] MEDS ORDERED: IOPAMIDOL (ISOVUE-370) 150 ML BTL IV ONE (12:45)
[2017-04-11] MEDS ORDERED: HEPARIN 10,000 UNIT/10 ML MDV ONE (12:45)
--- NOTE | 2017-04-11 13:51 | ECHO ---
[email or web address] [address] Main: [phone] Fax: Transthoracic Echocardiogram Name: FAROOQ VILLAGRAN MR#: [id number] Study Date: 04/11/2017 Study Time: 10:23 AM Date of : 1950 Age: 66 year(s) Height: 170.2 cm (67 in.) Weight: 69.4 kg (153 lb.) BSA: 1.8 m2 Gender: Male Examination: Echo Indication: Pre Cath, Known apical hypertrophy Image Quality: Contrast: Requested by: Lucia Booker BP: 134 mmHg/90 mmHg Heart Rate: Rhythm: Indication: Pre Cath, Known apical hypertrophy Procedure Staff Counseling Aide: Ignacio Hamilton Reading Physician: Boo Villagran Requesting Provider: Conclusions: Cavity obliteration of the apex with severe LVH and gradient noted. The apical anterior and apical lateral The gradient was 20mmHg at the apex. Mild mitral valve regurgitation is present. see below for further findings Measurements: Chambers Valvular Assessment AV/MV Valvular Assessment TV/PV Normal Normal Normal Name Value Range Name Value Range Name Value Range Ao Mally (MM): 3.5 cm (2.2 cm-3.7 AV Vmax: 1.28 m/s (1 m/s-1.7 PV Vmax: 0.94 m/s (0.6 m/s-0.9 cm) m/s) m/s) IVSd (2D): 1.1 cm (0.6 cm-1.1 AV maxP mmHg ( - ) PV PGmax: 4 mmHg ( - ) cm) LVOT Vmax: 1.34 m/s (0.7 m/s-1.1 LVDd (2D): 4.4 cm (4.2 cm-5.9 m/s) cm) MV E Vmax: 0.73 m/s ( - ) LVDs (2D): 3.4 cm (2.1 cm-4 MV A Vmax: 0.55 m/s ( - ) cm) MV E/A: 1.33 ( - ) LVPWd (2D): 1.5 cm (0.6 cm-1 cm) LVEF (MOD4): 50 % (>=55 %) Visual EF: 45 % Continued Measurements: Chambers Valvular Assessment AV/MV Name Value Name Value LADs Lon.0 cm MV E/E' Septal: 14.90 LA Area: 24.5 cm2 MV E/E' Lateral: 12.80 LA Volume: 78 ml LA Volume Index: 43.3 ml/m2 Patient: FAROOQ VILLAGRAN Study Date: 04/11/2017 Page 1 of 2 10:23 AM Findings: Left Ventricle: Normal size left ventricle. Apical hypertrophy. The ejection fraction is visually estimated to be 45 %. Cavity obliteration of the apex with severe LVH and gradient noted. The apical anterior and apical lateral wall segments are hypokinetic. The gradient was 20mmHg at the apex. Right Ventricle: Normal size right ventricle. Normal RV function. Left Atrium: The left atrium is moderately dilated. Right Atrium: The right atrium is mildly dilated. Mitral Valve: The mitral valve is normal in appearance. Mild mitral valve regurgitation is present. Aortic Valve: The aortic valve is normal in appearance and function. The aortic valve is tri-leaflet. Tricuspid Valve: The tricuspid valve is normal in appearance and function. There is no tricuspid valve regurgitation. Pulmonic Valve: The pulmonic valve is normal in appearance and function. Aorta: The aorta is normal. Pericardium: No pericardial effusion. (No Signature Object) Wall Motion Scores Patient: FAROOQ VILLAGRAN Study Date: 04/11/2017 Page 2 of 2 10:23 AM [id number]
--- NOTE | 2017-04-11 13:56 | PDDXCAT ---
Diagnostic Cath Note - . Date: 04/11/17 Instructor Extension Work: Jai Indication: other (Acute coronary syndrome with elevation in troponin associated with chest pains. Abnormal EKG with known coronary disease) - Procedure Access: right wrist Procedure: left heart catheterization, coronary angiography, left ventriculogram - Materials Left Heart Cath size: 5F Left Heart Cath materials: pigtail, other (SiteSeer4) - Findings-Left Heart Catheterization LM: Unobstructed LAD: Luminal irregularities without focal stenosis LCX: Luminal irregularities without focal stenosis RCA: Dominant: Luminal irregularities without focal stenosis EDP: Central chamber: 18 mm of mercury. LVEF: 72% with apical trapping. Wall motion: Apical hypertrophic cardiomyopathy Complications: None Estimated blood loss: <50ml Closure method: TR Band Assessment: Procedural: For details of the procedure please see attached computer report. Contrast: 110 cc. Sedation: 3 mg Versed, 75 mcg fentanyl. Radiation: 5.2 minutes fluoroscopy, 156 mGy. Conclusions: Nonobstructive mild atherosclerotic cardiovascular disease. Apical hypertrophic cardiomyopathy with preserved LV function. Plan: Secondary prevention in the setting of a ASCVD. EP evaluation for atrial tachycardia. Patient Problems: Problems Problem Status Onset SVT (supraventricular tachycardia) Acute Troponin I above reference range Acute
[2017-04-11 15:38] VITALS: BP 142/88; PULSE 67; TEMP 97.7; O2SAT 95
--- NOTE | 2017-04-11 16:17 | ASMTCMCOM ---
CM Note CM Note Notes: Reviewed chart re: d/c poc, pt's progress. Per MD notes, pt found to have mild atherosclerotic cardiovascular dx, ACS; s/p heart cath. Pt to discharge home independently w/ family support and no identified needs. Pt to f/u as directed. No IM signed, admission <48 hrs. CM avail for any further issues or concerns. Date Signed: 04/11/2017 04:17 PM Electronically Signed By:Madina Cardoza RN
--- NOTE | 2017-04-11 17:05 | GDS ---
[f rep st] DISCHARGE SUMMARY DIAGNOSES: 1. Type 2 myocardial infarction. 2. Apical hypertrophic cardiomyopathy. 3. Atrial fibrillation/atrial flutter with rapid ventricular response. 4. Gastroesophageal reflux disease/hiatal hernia. 5. Leukocytosis, resolved. HOSPITAL COURSE: A 66-year-old man with known apical cardiomyopathy, presented in atrial flutter wit h rapid ventricular response. He received adenosine in the emergency department, and then was starte d on a Cardizem drip. He converted to an ectopic atrial rhythm after this. He had a significant noble vation in his troponins, which peaked at 12. He was seen by both Dr. Gonzalez, as well as Dr. Vergara. He underwent a cardiac catheterization given the significant troponin elevation. This showed relativ toshia normal coronaries with mild obstructive disease. Dr. Gonzalez recommends increasing his metoprolol to 25 mg b.i.d. from 25 mg daily. I have discussed this with him, as well as potential side effects of this. He will start Eliquis tomorrow for stroke prophylaxis given his episode of atrial flutter. I have also discussed side effects and adverse reactions with Eliquis including bleeding complications . He is otherwise discharged in stable condition. He will follow up with his primary stopboard assembler, Dr. Carty. BILLING: I spent more than 30 minutes on the day of discharge coordinating care. /[id number]/MODL
--- NOTE | 2017-04-12 09:16 | ASDISCHSUM ---
Discharge Information Plan Status:Home with No Needs Medically Cleared to Leave:04/11/2017 Discharge Date:04/11/2017 06:30 PM CM D/C Disposition:Home, Routine, Self-Care ADT D/C Disposition:Home, Routine, Self-Care Projected Discharge Date:04/11/2017 12:00 AM Transportation at D/C:Family Discharge Delay Reason: Follow-Up Date:04/11/2017 12:00 AM Discharge Slot:3 - 18:01 pm - 12:00 am Final Diagnosis:Mild atherosclerotic cardiovascular dx, ACS, apical hypertrophic cardiomyopathy, marichuy b/aflutter/atrial tachycardia, HTN Placement Information Patient Contact Information Contact Name:LOUIS Relationship:Life Partner Address:[address] City:[place] Alternate Phone: [facility]/Zip Code:[place] [address] Email: Financial Information Financial Class: Primary Plan Desc:MEDICARE INPATIENT Primary Plan Number:[id number] Secondary Plan Desc: OUT OF STATE [facility] Secondary Plan Number:[id number] Assessment Information [facility] CM Progress Note CM Note CM Note Notes: Reviewed chart re: d/c poc, pt's progress. Pt admitted w/ CP and palpitations; scheduled for heart cath 04/11/17 at 1000. Discharge needs remain TBD. Anticipate pt will d/c home w/ family support and no needs. CM will cont to follow. Date Signed: 04/10/2017 04:10 PM Electronically Signed By:Madina Cardoza RN [facility] CM Progress Note CM Note CM Note Notes: Reviewed chart re: d/c poc, pt's progress. Per MD notes, pt found to have mild atherosclerotic cardiovascular dx, ACS; s/p heart cath. Pt to discharge home independently w/ family support and no identified needs. Pt to f/u as directed. No IM signed, admission <48 hrs. CM avail for any further issues or concerns. Date Signed: 04/11/2017 04:17 PM Electronically Signed By:Madina Cardoza RN Intervention Information
== END 2017-04-11 18:30 | disposition home or self-care (01) | DRG 281 ==
LOC: F2W 04:44
PROVIDERS: ADMIT Family Medicine; ATTEND Student in an Organized Health Care Education/Training Program
PROC: B2151ZZ Fluoroscopy of Left Heart using Low Osmolar Contrast (ICD-10-PCS; principal; 2017-04-11)
PROC: 4A023N7 Measurement of Cardiac Sampling and Pressure, Left Heart, Percutaneous Approach (ICD-10-PCS; principal; 2017-04-11)
PROC: B2111ZZ Fluoroscopy of Multiple Coronary Arteries using Low Osmolar Contrast (ICD-10-PCS; principal; 2017-04-11)
DX: I21.A1 Myocardial infarction type 2 (principal); I47.1 Supraventricular tachycardia; I48.92 Unspecified atrial flutter; I48.91 Unspecified atrial fibrillation; I25.10 Atherosclerotic heart disease of native coronary artery without angina pectoris; K44.9 Diaphragmatic hernia without obstruction or gangrene; K21.9 Gastro-esophageal reflux disease without esophagitis; I42.9 Cardiomyopathy, unspecified; I10 Essential (primary) hypertension; E78.5 Hyperlipidemia, unspecified; R06.83 Snoring; Z96.611 Presence of right artificial shoulder joint
CPT/HCPCS: 96365; C1769; J0153; J1644; J1650; J2250; J3010; Q9967

== ENCOUNTER → 2017-06-30 | Outpatient (CLI) | payer OTHER | LOC: FIMAGING 08:05 | PROVIDERS: ATTEND Surgery | DX: K21.0 Gastro-esophageal reflux disease with esophagitis (principal); K44.9 Diaphragmatic hernia without obstruction or gangrene ==

== ENCOUNTER 2017-10-06 07:00 | Observation (INO) | payer OTHER ==
[~2017-10-06 07:00] MED LIST: NS 1,000 ML IV ONE
[2017-10-06 07:59] LABS: INR 1.04 (0.83-1.16); PLATELET COUNT 198 10^3/uL (150-400); PROTIME(PATIENT) 13.8 SEC (12.0-15.0)
[2017-10-06] MEDS ORDERED: BACITRACIN IRRIGATION/NS 50,000 UNITS/1,000 ML BTL IRR ONE (08:24)
[2017-10-06] MEDS ORDERED: ceFAZolin 2 GM/SWFI 2 GM/20 ML SYR IVP ONE (08:24)
--- NOTE | 2017-10-06 08:29 | PDANEPAE ---
ANE History of Present Illness a fib ANE Past Medical History - Cardiovascular History Hx Arrhythmias: Yes Hx Coronary Artery / Peripheral Vascular Disease: Yes Hx Palpitations: Yes - Pulmonary History Hx Oxygen in Use at Home: No Hx Sleep Apnea: No - Endocrine History Hx Diabetes: No - GI History GERD: severe - Chronic Pain History Chronic Pain: No ANE Review of Systems Review of Systems: ANE Patient History - Allergies Allergies/Adverse Reactions: ciprofloxacin [From Cipro] Allergy (Severe, Verified 04/10/17 08:42) Hives - Home Medications Home Medications: Atorvastatin Calcium [Lipitor 20 mg (*)] 20 mg PO DAILY 04/10/17 [Last Taken 09/19 08:00] Metoprolol Succinate Xr [Toprol Xl 25 mg (*)] 25 mg PO DAILY 09/29/17 [Last Taken 10/03/17 08:00] Omeprazole 40 mg PO DAILY 09/29/17 [Last Taken 10/05/17] Ranitidine HCl [Zantac] 150 mg PO DAILY PRN 09/29/17 [Last Taken 10/02/17] - Smoking Hx Smoking Status: Never smoked ANE Labs/Vital Signs - Labs Result Diagrams: 10/06/17 07:30 10/06/17 07:30 - Vital Signs Height: 170.18 cm Weight: 63.503 kg ANE Physical Exam - Airway Neck exam: FROM Mallampati Score: Class 1 Mouth exam: normal dental/mouth exam - Pulmonary Pulmonary: no respiratory distress - Cardiovascular Cardiovascular: regular rate and rhythym - ASA Status ASA Status: III ANE Anesthesia Plan Anesthesia Plan: general endotracheal anesthesia, MAC
--- NOTE | 2017-10-06 08:30 | PDGENHP ---
History & Physical Chief Complaint: Nonsustained VT History of Present Illness: Apical HCM, nonsustained VT Relevant Physical Exam: s1s2 rrr. cta. ao 3 Cardiorespiratory Assessment: Apical HCM sp NSTEMI. Nonsustained VT. Discussed options over 20 min with pt+, discussed in clinic previously. If sustained VT or other reproducible life threatening arrhythmia induced, patient and want ICD implanted at the same time.
[2017-10-06] MEDS ORDERED: fentaNYL 100 MCG/2 ML INJ ONE ×2 (08:32→10:08)
[2017-10-06] MEDS ORDERED: PROPOFOL/EMULSION 500 MG/50 ML BOTTLE IV ONE (08:32)
[2017-10-06] MEDS ORDERED: MIDAZOLAM 2 MG/2 ML VIAL ONE (08:50)
[2017-10-06] MEDS ORDERED: LIDOCAINE 1% 300 MG/30 ML SDV ONE ×2 (08:53→10:13)
[2017-10-06] MEDS ORDERED: BUPIVACAINE 0.5% 30 ML SDV ONE ×2 (08:53→10:13)
[2017-10-06] MEDS ORDERED: ISOPROTERENOL HCL/D5W 0.2 MG/50 ML BAG IV ONE (09:07)
[2017-10-06] MEDS ORDERED: IOPAMIDOL (ISOVUE-300) 100 ML BTL ONE (09:58)
--- NOTE | 2017-10-06 10:01 | CPEKG ---
Heart Rate: 69 RR Interval: 870 P-R Interval: 82 QRSD Interval: 108 QT Interval: 472 QTC Interval: 506 P [place]: 0 QRS [place]: 50 T Wave [place]: 166 EKG Severity - ABNORMAL ECG - EKG Impression: low atrial rhythm EKG Impression: ATRIAL PREMATURE COMPLEX EKG Impression: LVH WITH SECONDARY REPOL ABNRM EKG Impression: ABNORMAL T, PROBABLE ISCHEMIA, ANT-LAT LEADS EKG Impression: PROLONGED QT INTERVAL Electronically Signed By: Dario Gonzalez 06-Oct-2017 11:22:44
[2017-10-06] MEDS ORDERED: NALOXONE HCL 0.4 MG/ML INJ IVP PRN (11:13)
[2017-10-06] MEDS ORDERED: ONDANSETRON 4 MG/2 ML VIAL ONE (11:23)
[2017-10-06] MEDS ORDERED: DEXAMETHASONE 4 MG/ML VIAL ONE (11:23)
[2017-10-06] MEDS ORDERED: PHENYLEPHRINE HCL 100 MCG/ML SYR ONE (11:23)
[2017-10-06] MEDS ORDERED: NON-FORMULARY NEW DRUG (Ranitidine Hcl [Zantac] 150 MG) PO PRN (11:26)
--- NOTE | 2017-10-06 11:34 | EPPROC ---
Electrophysiology Procedure Note: DIAGNOSTIC ELECTROPHYSIOLOGIC STUDY Procedures performed: EP study Drug infusion Induction of arrhythmia INDICATION: Apical hypertrophic cardiomyopathy Non ST elevation [place] in past with scar related to supply demand mismatch, normal coronaries Nonsustained VT on monitoring PROCEDURE: Catheters & Anesthesia: The patient arrived in the Electrophysiology Laboratory in the fasting state. The right clavicular region, right groin, & left groin area were prepped & draped in the usual sterile manner. Dr. John Barroso administered anesthesia. Appropriate non-invasive blood pressure, pulse oximetry & end-tidal CO2 monitoring was established. All catheters were placed percutaneously using the modified Seldinger technique , under US guidance, and advanced into position under fluoroscopic guidance. One #7 [place] deflectable octapolar electrode catheter was advanced to the His- bundle position via the left femoral vein (2mm spacing) and then placed at RV apex. Pacing from RV apex, ventricular programmed stimulation induced sustained, hemodynamically unstable monomorphic VT, CL 210 ms, LBBB inferior axis morphology. This required defibrillation. Prior to this, nonsustained monomorphic VT of 3 different morphologies was induced that self terminated. The catheters were removed. Vascular access sheath was removed in the EP lab after placing subcutaneous pursestring suture. (this was done after ICD placement) The patient was left on the table for ICD placement. There were no apparent complications. CONCLUSIONS 1. Sustained, hemodynamically unstable monomorphic VT. 2. ICD placement to follow EP study. 3. No apparent complications. Patient Problems: Problems Problem Status Onset SVT (supraventricular tachycardia) Acute Troponin I above reference range Acute
--- NOTE | 2017-10-06 11:35 | POSTANESTH ---
Post Anesthetic Evaluation Cardiovascular Status: Normal, Stable Respiratory Status: Normal, Stable Level of Consciousness/Mental Status: Can Participate in Eval Pain Control: Adequate, Prn Tx Ordered Nausea/Vomiting Control: Adequate, Prn Tx Ordered Complications Possibly Related to Anesthesia: None Noted
--- NOTE | 2017-10-06 11:39 | EPPROC ---
Electrophysiology Procedure Note: PROCEDURE PERFORMED: 1. Implantation of an A-V Implantable Cardioverter Defibrillator 2. Subclavian vein angiography 3. Fluoroscopy INDICATION: Apical hypertrophic cardiomyopathy Non ST elevation [place] VT on monitoring Sustained hemodynamically unstable VT at EP study PROCEDURE NOTE: Patient presented to the cardiac catheterization laboratory in a fasting, postabsorptive state. The left infraclavicular area was prepped and draped in the usual sterile fashion. Dr. John Barroso administered sedation. Lidocaine plus bupivacaine was used for local anesthesia. Left subclavian venography was performed by injection of iodinated contrast into the left antecubital vein. This was done to assure patency of the vein and also to assess for any anatomical aberrations. Using a combination of blunt and sharp dissection and electrocautery, the dissection was carried down to the prepectoral fascia. A pocket was made in this anatomical plane. All bleeding was controlled with electrocautery. The pocket was packed with gauze soaked in antibiotic solution. Fluoroscopy was utilized during the entire procedure for venous access and placement of the leads. Using a direct stick technique the left extrathoracic axillary vein was accessed with 2 sticks using the modified Seldinger technique. Placement of the guide wires into the venous system was confirmed by low pressure blood return and also by visualizing the guide wires advancing into the inferior vena cava. A purse string suture was applied around the guide wires. #7 Fr and #6 Fr sheaths were advanced under fluoroscopic guidance over the guide wires. An active fixation ventricular ICD lead was advanced into the right ventricular apex and screwed in place. An active fixation atrial lead was advanced into the right atrial appendage and screwed in place. The peel away sheaths were removed. Pacing thresholds, sensing parameters and leads impedances were measured. There was no diaphragmatic stimulation at maximum output. The leads were sutured to the prepectoral fascia with 3 non-absorbable sutures. The gauze packing was removed from the ICD pocket. The pocket was again inspected for any bleeding. The leads were attached to the ICD securely. The ICD was inserted into the pocket and secured in place with a nonabsorbable suture. Fluoroscopy was performed in GOMEZ and MONT[place]GR[place] planes to verify right sided placement of the leads. Also fluoroscopy of the ICD pocket was performed. Defibrillation testing was performed. The ICD pocket was closed in 3 layers with absorbable monocryl sutures and antony. Appropriate dressing was applied. The patient left the cardiac catheterization laboratory in stable condition. Serial Numbers: 1. Device SJ [id number] 2. Atrial Lead [facility] [id number] SN [id number] 3. Ventricular Lead [facility] 7122 Q-52 [id number] (single coil) Stimulation Thresholds & Impedance Measurements: 1. Atrial Lead P 5.9 mV 517 ohm 0.8 V 0.5 ms 2. Ventricular Lead R 32.6 mV 566 ohm 0.5 V 0.5 ms Defibrillation testing: Induction with DC Fibber. Appropriate sensing and termination of VF at 25 J Pacing Parameters: 1. Pacing mode DDD 2. Lower rate 40 ppm Tachycardia therapy parameters: VF zone: Detection 181 bpm First therapy ATPx3 Subsequent therapies 30 J, 40 Joule VT zone: Detection 200 bpm First therapy ATP x 1 Second therapy 36 Joule Subsequent therapies 40 Joule Patient Problems: Problems Problem Status Onset SVT (supraventricular tachycardia) Acute Troponin I above reference range Acute
[2017-10-06] MEDS ORDERED: FAMOTIDINE 20 MG TAB PO PRN (11:54)
--- NOTE | 2017-10-06 11:56 | CPEKG ---
Heart Rate: 69 RR Interval: 870 P-R Interval: 136 QRSD Interval: 92 QT Interval: 472 QTC Interval: 506 P [place]: 70 QRS [place]: 57 T Wave [place]: 161 EKG Severity - ABNORMAL ECG - EKG Impression: NSR, LVH, long QT interval EKG Impression: Known apical HCM patient, ECG unchanged from prior Electronically Signed By: Dario Gonzalez 06-Oct-2017 12:14:20
[2017-10-06] MEDS: HYDROCODONE/APAP 5/325 TAB PO PRN ×2 (12:43→22:03)
[2017-10-07 04:23] LABS: PLATELET COUNT 174 10^3/uL (150-400)
[2017-10-07 08:21] VITALS: BP 134/89; PULSE 76; RESP 14; TEMP 99.1; O2SAT 96
--- NOTE | 2017-10-07 08:54 | CPEKG ---
Heart Rate: 58 RR Interval: 1034 P-R Interval: 136 QRSD Interval: 96 QT Interval: 484 QTC Interval: 476 P [place]: 60 QRS [place]: 41 T Wave [place]: 170 EKG Severity - ABNORMAL ECG - EKG Impression: SINUS RHYTHM EKG Impression: PROBABLE LVH WITH SECONDARY REPOL ABNRM EKG Impression: REPOL ABNRM, PROBABLE ISCHEMIA, ANT-LAT LEADS EKG Impression: BORDERLINE PROLONGED QT INTERVAL Electronically Signed By: Willian Tapia 07-Oct-2017 15:25:14
[2017-10-07] MEDS ORDERED: ATORVASTATIN CALCIUM 20 MG TAB PO SCH (09:00)
[2017-10-07] MEDS ORDERED: METOPROLOL SUCCINATE XR 25 MG TAB PO SCH (09:00)
[2017-10-07] MEDS ORDERED: NON-FORMULARY NEW DRUG (Omeprazole [Omeprazole] 40 MG) PO SCH (09:00)
[2017-10-07] MEDS ORDERED: PANTOPRAZOLE SODIUM 40 MG TAB PO SCH (09:00)
--- NOTE | 2017-10-07 14:08 | GDS ---
[f rep st] DISCHARGE SUMMARY DISCHARGE DIAGNOSES: 1. 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 2. History of apical hypertrophic cardiomyopathy. 3. History of mild nonobstructive coronary artery disease based on cardiac catheterization from 2016, on medical management. 4. Paroxysmal atrial fibrillation, on Eliquis therapy. PROCEDURES: 1. 10/06/2017: EP study, which showed sustained hemodynamically unstable monomorphic VT status post ICD placement on this admission. 2. Serial chest x-rays. BRIEF HISTORY: Please see dictated H and P from our office for complete details. In brief, the govind ent is a 66-year-old male with a history of an abnormal ECG, who was found to have an apical hypertro phic cardiomyopathy. He had Event monitoring which showed SVT, PAF, and nonsustained VT. Given his history of hypertrophic cardiomyopathy, he proceeded to EP study and was found to have inducible mono morphic VT. In this admission, he proceeded to ICD prior to discharge. On day of discharge, he notes some mild tenderness at his pacer site. Chest x-ray is stable. PHYSICAL EXAM: VITAL SIGNS: On day of discharge, blood pressure 134/89, heart rate of 76, respirati ons 14, O2 saturation 96% on room air, temp of 99.1 degrees Fahrenheit. GENERAL: He is a very pleas ant male in no apparent distress. EYES: PERRL. HEART: Regular rate and rhythm. Left pectoral carmen on with mild edema without ecchymosis. LUNGS: Clear to auscultation bilaterally. SKIN: Warm and d ry. LABORATORY DATA: CBC with WBC 15.34, hemoglobin 13.3, hematocrit 38.8, platelet count 174. BMP with sodium 139, potassium 4.1, chloride 108, CO2 of 22, BUN 14, creatinine 0.8, glucose 110. RESULTS PENDING: None. DIET: Per previous. ACTIVITY: Arm precautions were reviewed at length. DISCHARGE MEDICATIONS: Please see med reconciliation. He is being continued on his home Zantac, ome prazole, Toprol-XL 25 mg p.o. daily, atorvastatin 20 mg p.o. daily. He is to resume apixaban startin g in the evening of 10/08/2017. DISCHARGE INSTRUCTIONS: 1. Arm precautions. 2. Follow up in [facility] in 1 week's time. 3. Follow up with Dr. Gonzalez as scheduled. /[id number]/MODL
== END 2017-10-07 11:25 | disposition home or self-care (01) ==
LOC: FCATH 07:00 → F2W 11:23
PROVIDERS: ADMIT Internal Medicine Cardiovascular Disease; ATTEND Internal Medicine Cardiovascular Disease
PROC: 4B02XTZ Measurement of Cardiac Defibrillator, External Approach (ICD-10-PCS; principal; 2017-10-06)
PROC: 4A023FZ Measurement of Cardiac Rhythm, Percutaneous Approach (ICD-10-PCS; principal; 2017-10-06)
PROC: 0JH608Z Insertion of Defibrillator Generator into Chest Subcutaneous Tissue and Fascia, Open Approach (ICD-10-PCS; principal; 2017-10-06)
PROC: 02HK3KZ Insertion of Defibrillator Lead into Right Ventricle, Percutaneous Approach (ICD-10-PCS; principal; 2017-10-06)
PROC: 02H63KZ Insertion of Defibrillator Lead into Right Atrium, Percutaneous Approach (ICD-10-PCS; principal; 2017-10-06)
DX: I47.2 Ventricular tachycardia (principal); I42.1 Obstructive hypertrophic cardiomyopathy; I25.2 Old myocardial infarction; I48.0 Paroxysmal atrial fibrillation; Z79.01 Long term (current) use of anticoagulants
CPT/HCPCS: 33249; 71045; 71046; 93005; 93620; 93623; 93641; C1721; C1731; C1777; C1898; J0690; J1100; J1644; J2250; J2370; J2405; J2704; J3010; Q9967

== ENCOUNTER 2017-10-22 17:11 | Emergency (ER) | payer OTHER ==
--- NOTE | 2017-10-22 17:25 | CPEKG ---
Heart Rate: 82 RR Interval: 732 P-R Interval: 132 QRSD Interval: 94 QT Interval: 432 QTC Interval: 505 P [place]: 65 QRS [place]: 37 T Wave [place]: 170 EKG Severity - ABNORMAL ECG - EKG Impression: SINUS RHYTHM EKG Impression: PROBABLE LEFT ATRIAL ABNORMALITY EKG Impression: LVH WITH SECONDARY REPOLARIZATION ABNORMALITY EKG Impression: ABNORMAL T, PROBABLE ISCHEMIA, LATERAL LEADS EKG Impression: PROLONGED QT INTERVAL EKG Impression: Similar to previous Electronically Signed By: Bimal Yanez 22-Oct-2017 17:36:10
[2017-10-22] MEDS ORDERED: NS 1,000 ML IV ONE (17:34)
--- NOTE | 2017-10-22 17:35 | EDPHY ---
H & P Stated Complaint: a fib Time Seen by Provider: 10/22/17 17:20 HPI/ROS: CHIEF COMPLAINT: Irregular rapid heartbeat HISTORY OF PRESENT ILLNESS: Patient is a 66-year-old man with a history of atrial fibrillation was followed by Dr. Galvan. He also has a history of short runs of V-tach and had a pacemaker defibrillator placed several months ago. Today at home at 3:00 p.m. He noticed his heart rate increased and he became lightheaded. He felt his pulse and it was fast and irregular. He was not defibrillated. 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 His symptoms resolved after about an hour. He decided to come to the ER however to get checked out. He is now in sinus rhythm and states that he is asymptomatic. He denies having any chest pain during the episode today. No shortness of breath. No diaphoresis. No nausea vomiting. REVIEW OF SYSTEMS: Constitutional: denies: chills, fever, recent illness, recent injury EENTM: denies: blurred vision, double vision, nose congestion Respiratory: denies: cough, shortness of breath Cardiac: See HPI denies: chest pain Gastrointestinal/Abdominal: denies: abdominal pain, diarrhea, nausea, vomiting, blood streaked stools Genitourinary: denies: dysuria, frequency, hematuria, pain Musculoskeletal: denies: joint pain, muscle pain Skin: denies: lesions, rash, jaundice, bruising Neurological: denies: headache, numbness, paresthesia, tingling, dizziness, weakness Hematologic/Lymphatic: denies: blood clots, easy bleeding, easy bruising Immunologic/allergic: denies: HIV/AIDS, transplant EXAM: GENERAL: Well-appearing, well-nourished and in no acute distress. HEAD: Atraumatic, normocephalic. EYES: Pupils equal round and reactive to light, extraocular movements intact, sclera anicteric, conjunctiva are normal. ENT: TMs normal, nares patent, oropharynx clear without exudates. Moist mucous membranes. NECK: Normal range of motion, supple without lymphadenopathy or JVD. LUNGS: Breath sounds clear to auscultation bilaterally and equal. No wheezes rales or rhonchi. HEART: Pacemaker in place, Regular rate and rhythm without murmurs, rubs or gallops. ABDOMEN: Soft, nontender, normoactive bowel sounds. No guarding, no rebound. No masses appreciated. BACK: No CVA tenderness, no spinal tenderness, step-offs or deformities EXTREMITIES: Normal range of motion, no pitting or edema. No clubbing or cyanosis. NEUROLOGICAL: Cranial nerves II through XII grossly intact. Normal speech, normal gait. 5/5 strength, normal movement in all extremities, normal sensation PSYCH: Normal mood, normal affect. SKIN: Warm, dry, normal turgor, no visible rashes or lesions. Source: Patient, Family, Old records - Personal History Current Tetanus Diphtheria and Acellular Pertussis (TDAP): Yes - Medical/Surgical History Hx Asthma: No Hx Chronic Respiratory Disease: No Hx Diabetes: No Hx Cardiac Disease: Yes Hx Renal Disease: No Hx Cirrhosis: No Hx Alcoholism: No Hx HIV/AIDS: No Hx Splenectomy or Spleen Trauma: No Other PMH: hiatial hernia, RACL reconstructed, Right shoulder replacement, [place], afib, apical HCM with apical scar, GERD - Family History Significant Family History: No pertinent family hx - Social History Smoking Status: Never smoked Alcohol Use: Sober Drug Use: None Constitutional: Initial Vital Signs Temperature (C) 36.5 C 10/22/17 17:15 Heart Rate 80 10/22/17 17:15 Respiratory Rate 18 10/22/17 17:15 Blood Pressure 149/96 H 10/22/17 17:15 O2 Sat (%) 95 10/22/17 17:15 O2 Delivery Mode Room Air Allergies/Adverse Reactions: ciprofloxacin [From Cipro] Allergy (Severe, Verified 10/22/17 17:14) Hives Home Medications: Medication Instructions Recorded Atorvastatin Calcium [Lipitor 20 20 mg PO DAILY 04/10/17 mg (*)] Apixaban [Eliquis] 5 mg PO BID #60 tab 04/11/17 Metoprolol Succinate Xr [Toprol Xl 25 mg PO DAILY 09/29/17 25 mg (*)] Omeprazole 40 mg PO DAILY 09/29/17 Ranitidine HCl [Zantac] 150 mg PO DAILY PRN 09/29/17 Medical Decision Making - Diagnostics EKG Interpretation: An EKG obtained and was read and documented in trace view. Please see trace view for full reading and report. Sinus rhythm, pronounced T-wave inversions similar to previous EKGs. No acute ST elevation or changes. ED Course/Re-evaluation: 7:00 p.m. the patient remains asymptomatic. I reviewed his rhythm strip. He had few PVCs but no other abnormalities. The patient states that he could fill those. He is eager to go home. I will have him follow up with his Cardiology group. We discussed indications for returning. Differential Diagnosis: Partial list of the Differential diagnosis considered include but were not limited to; atrial fibrillation, PVC, SVT, anxiety and although unlikely based on the history and physical exam, I also considered acute coronary disease, dissection, PE. I discussed these differential diagnoses and the plan with the patient as well as the usual and expected course. The patient understands that the diagnosis is provisional and that in medicine we are not always correct and that further workup is often warranted. Usual and customary warnings were given. All of the patient's questions were answered. The patient was instructed to return to the emergency department should the symptoms at all worsen or return, otherwise to followup with the physician as we discussed. - Data Points Laboratory Results: Laboratory Results 10/22/17 17:29 10/22/17 17:29 Sodium 140 mEq/L mEq/L (135-145) Potassium 4.0 mEq/L mEq/L (3.5-5.2) Chloride 103 mEq/L mEq/L (97-110) Carbon Dioxide 22 mEq/l mEq/l (22-31) Anion Gap 15 mEq/L mEq/L (8-16) BUN 20 mg/dL mg/dL (7-23) Creatinine 0.8 mg/dL mg/dL (0.7-1.3) Estimated GFR > 60 Glucose 95 mg/dL mg/dL (70-100) Calcium 9.9 mg/dL mg/dL (8.5-10.4) Medications Given: Discontinued Medications Sodium Chloride (Ns) 1,000 mls @ 0 mls/hr IV ONCE ONE PRN Reason: Wide Open Stop: 10/22/17 17:35 Last Admin: 10/22/17 17:38 Dose: 1,000 mls Departure - Departure Disposition: Home, Routine, Self-Care Clinical Impression: Atrial fibrillation Qualifiers: Atrial fibrillation type: paroxysmal Qualified Code(s): I48.0 - Paroxysmal atrial fibrillation Condition: Fair Instructions: A-fib (Atrial Fibrillation) (ED) Referrals: Maya Rousseau MD [Primary Care Provider] - As per Instructions Dario Gonzalez MD [Medical Doctor] - As per Instructions
[2017-10-22 18:30] VITALS: BP 123/80
== END 2017-10-22 19:08 | disposition home or self-care (01) ==
DX: I48.0 Paroxysmal atrial fibrillation (principal); I25.2 Old myocardial infarction

== ENCOUNTER 2018-10-12 05:07 | Observation (INO) | payer OTHER ==
[2018-10-12] MEDS ORDERED: METOPROLOL TARTRATE 5 MG/5 ML INJ IVP ONE (05:33)
--- NOTE | 2018-10-12 05:40 | EDPHY ---
H & P Stated Complaint: CP startedd around 0258 and afib Time Seen by Provider: 10/12/18 05:17 HPI/ROS: Chief Complaint: Atrial fibrillation HPI: 67-year-old male with a history of hypertrophic cardiomyopathy, atrial fibrillation and ventricular tachycardia, has an implantable defibrillator. Patient has been taking metoprolol but has been getting breakthrough episodes of atrial fibrillation. Patient was recently seen by Dr. Treadwell with plan to transition him from the metoprolol to sotalol. The plan was for the patient to come to the hospital later today for admission for that transition. Patient last took metoprolol yesterday morning. He woke up this morning at 2:50 a.m. With heart palpitations similar to his prior atrial fibrillation with rapid response. He he spoke with the on-call rn circulating, Dr. Del Cid who requested that the patient come to the emergency department to have his rate controlled in to be admitted to initiate the sotalol. Patient has had some moderate central chest discomfort which is similar to his prior episodes. No fevers or chills. No cough. No nausea or vomiting. Does not feel that he has gone into ventricular tachycardia. Does not feel his AICD has fired. ROS: 10 systems were reviewed and were negative except those elements noted in the HPI. PMH: Atrial fibrillation, ventricular tachycardia, hypertrophic cardiomyopathy Social History: No smoking, no alcohol, no recreational drug use Family History: non-contributory Physical Exam: Gen: Awake, Alert, No Distress HEENT: Nose: no rhinorrhea Eyes: PERRLA, EOMI Mouth: Moist mucosa Neck: Supple, no JVD Chest: nontender, lungs clear to auscultation Heart: S1, S2 normal, tachycardic, irregularly irregular Abd: Soft, non-tender, no guarding Back: no CVA tenderness, no midline tenderness Ext: no edema, non-tender Skin: no rash Neuro: CN II-XII intact, Sensation grossly intact, Strength 5/5 in bilateral upper and lower extremities - Personal History Current Tetanus/Diphtheria Vaccine: Yes Current Tetanus Diphtheria and Acellular Pertussis (TDAP): Yes - Medical/Surgical History Hx Asthma: No Hx Chronic Respiratory Disease: No Hx Diabetes: No Hx Cardiac Disease: Yes Hx Renal Disease: No Hx Cirrhosis: No Hx Alcoholism: No Hx HIV/AIDS: No Hx Splenectomy or Spleen Trauma: No Other PMH: hiatial hernia, RACL reconstructed, Right shoulder replacement, [place], afib, apical HCM with apical scar, GERD - Social History Smoking Status: Never smoked Constitutional: Initial Vital Signs Temperature (C) 36.6 C 10/12/18 05:10 Heart Rate 129 H 10/12/18 05:10 Respiratory Rate 16 10/12/18 05:10 Blood Pressure 148/79 H 10/12/18 05:10 O2 Sat (%) 97 10/12/18 05:10 O2 Delivery Mode Room Air Allergies/Adverse Reactions: ciprofloxacin [From Cipro] Allergy (Severe, Verified 10/12/18 05:13) Hives Home Medications: Medication Instructions Recorded Atorvastatin Calcium [Lipitor 20 20 mg PO DAILY 04/10/17 mg (*)] Apixaban [Eliquis] 5 mg PO BID #60 tab 04/11/17 Metoprolol Succinate Xr [Toprol Xl 25 mg PO DAILY 09/29/17 25 mg (*)] Omeprazole 40 mg PO DAILY 09/29/17 Ranitidine HCl [Zantac] 150 mg PO DAILY PRN 09/29/17 Medical Decision Making - Diagnostics EKG Interpretation: ECG time 5:19 a.m., atrial fibrillation with a rapid ventricular rate, minimal ST depressions in the inferior leads. Nonspecific T-wave abnormalities. ED Course/Re-evaluation: I have discussed the patient with Dr. Del Cid, cardiology. He is requesting that the patient be given 80 mg of sotalol now. He is also requesting 5 mg of IV metoprolol for immediate rate control. He would like the patient admitted to the hospitalist service for continued monitoring for his sotalol load. I have paged the hospitalist. - Data Points Medications Given: Discontinued Medications Metoprolol Tartrate (Lopressor Injection) 5 mg IVP EDNOW ONE Stop: 10/12/18 05:34 Last Admin: 10/12/18 05:35 Dose: 5 mg Departure - Departure Disposition: [facility] Inpatient Acute Clinical Impression: Atrial fibrillation Condition: Fair Referrals: Maya Rousseau MD [Primary Care Provider] - As per Instructions
[2018-10-12 05:41] LABS: PLATELET COUNT 200 10^3/uL (150-400)
[2018-10-12] MEDS ORDERED: ACETAMINOPHEN 325 MG TAB PO PRN (05:47)
[2018-10-12] MEDS: SOTALOL HCL 80 MG TAB PO SCH ×2 (05:50→22:22)
--- NOTE | 2018-10-12 06:16 | PDGENHP ---
History and Physical - Chief Complaint Tachycardia - History of Present Illness 67 yo M w/ hx of AF, VT s/p ICD, and HOCM presents with AF w/ RVR. The patient has a planned Sotalol induction for today. He stopped his metoprolol yesterday as directed. This morning, however, he developed fast heart rate so he came in to the ED for evaluation. He is anticoagulated with apixaban. Dr. Del Cid of cardiology was consulted and recommended metoprolol 5 mg IV x1 and sotalol 80 mg PO. These medications have been administered and patient's heart rate is in the 110s. He is currently asymptomatic. He is being admitted for sotalol initiation. Case discussed with ED physician Dr. Rea; records reviewed and summarized above. History Information - Allergies/Home Medication List Allergies/Adverse Reactions: ciprofloxacin [From Cipro] Allergy (Severe, Verified 10/12/18 05:13) Hives Home Medications: Atorvastatin Calcium [Lipitor 20 mg (*)] 20 mg PO DAILY 04/10/17 [Last Taken 09/19 08:00] Metoprolol Succinate Xr [Toprol Xl 25 mg (*)] 25 mg PO DAILY 09/29/17 [Last Taken 10/03/17 08:00] Omeprazole 40 mg PO DAILY 09/29/17 [Last Taken 10/05/17] Ranitidine HCl [Zantac] 150 mg PO DAILY PRN 09/29/17 [Last Taken 10/02/17] I have personally reviewed and updated: family history, medical history - Past Medical History atrial fibrillation Additional medical history: HOCM. VT - Surgical History Reports: pacemaker/AICD - Family History Positive for: CAD - Social History Smoking Status: Never smoked Review of Systems Review of Systems: ROS: 10pt was reviewed & negative except for what was stated in HPI & below Physical Exam Physical Exam: Temp Pulse Resp BP Pulse Ox 36.6 C 74 18 127/82 H 95 10/12/18 05:10 10/12/18 05:48 10/12/18 05:48 10/12/18 05:48 10/12/18 05:48 Constitutional: no apparent distress, not in pain Eyes: PERRL, EOMI Ears, Nose, Mouth, Throat: moist mucous membranes, no oral mucosal ulcers Cardiovascular: irregularly irregular, tachycardia Respiratory: no respiratory distress, clear to auscultation Gastrointestinal: normoactive bowel sounds, soft, non-tender abdomen Skin: warm, normal color Musculoskeletal: full muscle strength, no muscle tenderness Neurologic: AAOx3, CN II-XII Intact Psychiatric: interacting appropriately, not anxious Lab Data & Imaging Review 10/12/18 05:20 10/12/18 05:20 WBC 10.31 10^3/uL (3.80-9.50) H 10/12/18 05:20 RBC 5.36 10^6/uL (4.40-6.38) 10/12/18 05:20 Hgb 16.1 g/dL (13.7-17.5) 10/12/18 05:20 Hct 46.4 % (40.0-51.0) 10/12/18 05:20 MCV 86.6 fL (81.5-99.8) 10/12/18 05:20 MCH 30.0 pg (27.9-34.1) 10/12/18 05:20 MCHC 34.7 g/dL (32.4-36.7) 10/12/18 05:20 RDW 11.9 % (11.5-15.2) 10/12/18 05:20 Plt Count 200 10^3/uL (150-400) 10/12/18 05:20 MPV 11.2 fL (8.7-11.7) 10/12/18 05:20 Neut % (Auto) 60.2 % (39.3-74.2) 10/12/18 05:20 Lymph % (Auto) 27.4 % (15.0-45.0) 10/12/18 05:20 [place] % (Auto) 10.1 % (4.5-13.0) 10/12/18 05:20 Eos % (Auto) 1.1 % (0.6-7.6) 10/12/18 05:20 Baso % (Auto) 0.8 % (0.3-1.7) 10/12/18 05:20 Nucleat RBC Rel Count 0.0 % (0.0-0.2) 10/12/18 05:20 Absolute Neuts (auto) 6.21 10^3/uL (1.70-6.50) 10/12/18 05:20 Absolute Lymphs (auto) 2.83 10^3/uL (1.00-3.00) 10/12/18 05:20 Absolute Monos (auto) 1.04 10^3/uL (0.30-0.80) H 10/12/18 05:20 Absolute Eos (auto) 0.11 10^3/uL (0.03-0.40) 10/12/18 05:20 Absolute Basos (auto) 0.08 10^3/uL (0.02-0.10) 10/12/18 05:20 Absolute Nucleated RBC 0.00 10^3/uL (0-0.01) 10/12/18 05:20 Immature Gran % 0.4 % (0.0-1.1) 10/12/18 05:20 Immature Gran # 0.04 10^3/uL (0.00-0.10) 10/12/18 05:20 Sodium 137 mEq/L (135-145) 10/12/18 05:20 Potassium 3.7 mEq/L (3.5-5.2) 10/12/18 05:20 Chloride 104 mEq/L (97-110) 10/12/18 05:20 Carbon Dioxide 20 mEq/l (22-31) L 10/12/18 05:20 Anion Gap 13 mEq/L (6-14) 10/12/18 05:20 BUN 20 mg/dL (7-23) 10/12/18 05:20 Creatinine 1.0 mg/dL (0.7-1.3) 10/12/18 05:20 Estimated GFR > 60 10/12/18 05:20 Glucose 101 mg/dL (70-100) H 10/12/18 05:20 Calcium 10.1 mg/dL (8.5-10.4) 10/12/18 05:20 Magnesium 2.0 mg/dL (1.6-2.3) 10/12/18 05:20 Specimen Hemolysis Cancelled 10/12/18 05:20 Visualized and Interpreted EKG results: Yes EKG Interpretation: Positive for: other (AF w/ RVR) Assessment & Plan Assessment: 67 yo M w/ hx of AF, VT s/p ICD, and HOCM presents with AF w/ RVR. Plan: 1. AF w/ RVR - Patient has known AF and had planned sotalol initiation scheduled for later today. He developed RVR early this morning with rates >160. Rates are now improved after metoprolol IV in the ED. - Observe in PCU - Dr. Del Cid of cardiology consulted in the ED - Sotalol ordered, first dose at 0600 - ECG ordered for 0900 - Monitor on telemetry - Continue apixaban - Avoid other QT prolonging meds 2. Hx VT - S/p ICD 3. Hx HOCM 4. Hx non-obstructive CAD - Continue home meds pending reconciliation Diet - Regular Code - Full Ppx - apixaban Dispo - Admit under observation status
[2018-10-12] MEDS ORDERED: POTASSIUM CL 20 MEQ TAB PO ONE (08:19)
--- NOTE | 2018-10-12 09:11 | CPEKG ---
Test Reason : OPEN Blood Pressure : / mmHG Vent. Rate : 060 BPM Atrial Rate : 060 BPM P-R Int : 144 ms QRS Dur : 093 ms QT Int : 529 ms P-R-T Axes : 057 040 166 degrees QTc Int : 529 ms Atrial-paced complexes Repol abnrm, prob ischemia, anterolateral lds Prolonged QT interval Confirmed by Franc Vergara ([id number]) on 10/12/2018 9:10:50 AM Referred By: Petey Barajas Confirmed By:Franc Vergara
--- NOTE | 2018-10-12 11:14 | ASMTCMCOM ---
CM Note CM Note Notes: Pts case discussed in tx rounds. Pt is a 67 y/o man admitted for tachycardia. Pt will most likely d/c without any needs when medically stable. No therapies ordered at this time. CM available for changes. Plan: Independent Date Signed: 10/12/2018 11:13 AM Electronically Signed By:KRISTOPHER Pride
[2018-10-12] MEDS ORDERED: ALPRAZolam 0.5 MG TAB PO PRN (12:36)
--- NOTE | 2018-10-12 12:58 | PDCARPN ---
Cardiology Progress Note Chief Complaint: Patient reports he is tired of going into atrial fibrillation Assessment/Plan: Assessment: Please see Dr Ignacio office note (placed in his chart) to be used as official cardiology consultation. 67-year-old male with history of apical hypertrophic cardiomyopathy, inducible ventricular tachycardia status post implantation dual chamber ICD (11/2017), coronary artery disease (non flow limiting cardiac catheterization 04/2017), and paroxysmal atrial fibrillation. Last seen in our office 10/05/2018 due to noted episodes breakthrough atrial fibrillation with RVR , with rates that following to VF detection zone by his ICD. Fortunately has had no inappropriate shocks. Plan to come in today, with sotalol loading, with recent discontinuation of metoprolol on 10/05/2018. Unfortunately, patient wanted to AFib with RVR with associated symptoms of shortness of breath and fatigue. Upon arrival to the ED, EKG confirmed AFib AFib with RVR with ventricular rates up to 160 BPM. He was treated with 1 dose of IV metoprolol, and started on sotalol 80 mg p.o. Twice daily. Did self convert around 7:00 a.m. this morning. 10/12/2018: Patient reports currently reporting no chest pain, pressure. Denies of any further episodes of palpitations or lightheadedness. Laboratory studies on admission showing mildly elevated white blood cell count 10.31 ( probable stress induced), with no fever. Hemoglobin of 16.14, hematocrit 46.4, noted to have potassium at 3.7 magnesium 2.0. 2 hr post dosing electrocardiograms showing a paced with intrinsic ventricular response, noted inverted T-waves in anterior lateral leads, probable early repolarization. QTC measuring at 529. Plan: 1. Paroxysmal atrial fibrillation: He has converted to sinus rhythm. He does show increasing QTC, but I have discussed this with Dr. Flores, who feels that this is more likely due to his hypertrophic cardiomyopathy and unlikely prolonged QTC from antiarrhythmic therapy. Will continue him on sotalol at 80 mg p.o. Twice daily. If he fails, then consideration of EP procedure with ablation if necessary. Continue him on home dose of Eliquis for anticoagulation. Patient has been started on electrolyte protocol, with ideal goal of keeping potassium greater than 4.0 and magnesium greater than 1.6. Patient will remain on continuous cardiac monitoring, he will also have 12 lead electrocardiograms 2 hr post dosing of sotalol times the 1st 4 doses. 2. History of ventricular tachycardia: Patient with history of hypertrophic cardiomyopathy, and noted positive EP study for inducible VT. He has AICD 3. Apical hypertrophic cardiomyopathy: Shows no signs of heart failure. Sotalol loading as mentioned above. Remote history of AICD. 4. Coronary artery disease: Noted to be non flow limiting off of previous cardiac catheterization. Denies of any chest pain or pressure suggesting ischemia. Currently not on anti-platelet therapy due to being on full anticoagulation of Eliquis. Secondary risk prevention with atorvastatin. 5. Hyperlipidemia: Resume on home dose of atorvastatin. 6. GERD: Resumed home dosage of proton pump inhibitor and p.r.n. Dose of H2 lucia. Due to patient needing to be monitored for the next 4 doses of sotalol for arrhythmia, expected for patient to be in hospital for greater than 2 midnights. 10/12/18 12:57 Subjective: He reports no chest pressure or pain. Denies of any shortness of breath. Reports no lightheadedness. Denies of any orthopnea, PND, edema, near-syncope or syncopal events. Reports no symptoms suggestive of TIA or CVA. Denies of any bleeding issues. Denies of any therapeutic shocks from his ICD. Reviewed/Discussed With: other (Dr Flores) Objective: Vital Signs (8 Hrs) Temp Pulse Resp BP Pulse Ox 10/12/18 11:19 36.4 C 77 19 103/63 97 10/12/18 06:45 36.6 C 66 17 115/72 96 10/12/18 06:25 99 17 96 10/12/18 06:24 95 16 140/80 H 95 10/12/18 05:48 74 18 127/82 H 95 Intake/Output (24 Hrs) 10/11/18 10/12/18 10/13/18 05:59 05:59 05:59 Intake Total 115 Balance 115 Intake: Oral (ml) 100 IV Infused (ml) 15 Other: Weight 66.814 kg Result Diagrams: 10/12/18 05:20 10/12/18 05:20 - Physical Exam Constitutional: WDWN, no apparent distress Ears, Nose, Mouth, Throat: moist mucous membranes Cardiovascular: regular rate and rhythm, no rubs, no gallops, systolic murmur ( 1 to 2/6 left sternal border.), pulses symmetric bilat, No jugular vein distention, No carotid bruit Peripheral Pulses: 1+: dorsalis-pedis (R), dorsalis-pedis (L), 2+: carotid (R), carotid (L) Respiratory: clear to auscultate bilat, no crackles, no wheezes Gastrointestinal: normoactive bowel sounds, no tenderness, no masses Skin: no rashes, warm, no edema Neurologic: AAOx3 Psychiatric: cooperative, interactive, following commands ICD10 Worksheet Patient Problems: Problems Problem Status Onset SVT (supraventricular tachycardia) Acute Troponin I above reference range Acute Atrial fibrillation Acute
[2018-10-12] MEDS ORDERED: PROTOCOL POTASSIUM 1 DOSE MISC PRN (17:08)
[2018-10-12] MEDS ORDERED: FAMOTIDINE 20 MG TAB PO PRN (21:00)
[2018-10-12] MEDS: APIXABAN 5 MG TAB PO SCH (22:22)
[2018-10-13] MEDS: ATORVASTATIN CALCIUM 20 MG TAB PO SCH (07:09)
[2018-10-13] MEDS: APIXABAN 5 MG TAB PO SCH ×2 (07:09→21:00)
[2018-10-13] MEDS: PANTOPRAZOLE SODIUM 40 MG TAB PO SCH (07:09)
[2018-10-13] MEDS: CYANO/VITAMIN B12 1000 MCG TAB PO SCH (07:09)
[2018-10-13] MEDS: SOTALOL HCL 80 MG TAB PO SCH ×2 (09:42→21:00)
--- NOTE | 2018-10-13 09:42 | HOSPPROG ---
Hospitalist Progress Note Assessment/Plan: DIAGNOSES: * Acute rapid atrial fibrillation, with chronic paroxysmal atrial fibrillation; now on sotalol and is in a sinus rhythm with intermittent pacing * single 5 beat run of wide complex tachycardia overnight, uncertain origin, monitor shows ventricular pacing spikes but unclear to me if this is actually pacer driven rhythm or not from its appearance; otherwise a few PVCs+ * No notable side effects of sotalol that the patient experiences to this point * History of VT, AICD in place * HOCM; no CHF at present PLANS: * I reviewed the above monitor findings with Jerad Godfrey of Cardiology * Continue monitoring specialist for now and further discussions with cardiology team today * Encourage ambulation Seen by me on hospitals rounds as well as multidisciplinary rounds I reviewed with cardiology team today SUBJECTIVE: Patient feels fine, no palpitations or other problems overnight, particularly no symptoms of CHF or typical sotalol side effects OBJECTIVE Vitals reviewed: 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, my review: Mostly sinus rhythm at this point with some intermittent pacing and few PVCs but at 23:00 last night he had 5 beats of wide complex tachycardia with the monitor showing pacer spikes for the last 4 of those 5, unclear to me what the actual origin of these beats is Exam: alert oriented skin warm dry color ok resps not labored lungs clear BSs heart regular abd soft nondistended nontender, bowel sounds present limbs warm, no edema iv site ok Lab data: Basic met panel stable Magnesium 2.0 Objective: Vital Signs Temp Pulse Resp BP Pulse Ox 36.6 C 66 18 135/74 H 96 10/13/18 07:30 10/13/18 07:30 10/13/18 07:30 10/13/18 07:30 10/13/18 07:30 Laboratory Results 10/13/18 03:08 10/12/18 10/13/18 10/14/18 06:59 06:59 06:59 Intake Total 115 1050 Balance 115 1050 - Time Spent With Patient Time Spent with Patient: greater than 35 minutes Time Spent with Patient: Greater than 35 minutes spent on this patients care, greater than 50% of time spent counseling, educating, and coordinating care regarding the above mentioned plan. ICD10 Worksheet Patient Problems: Problems Problem Status Onset Atrial fibrillation Acute SVT (supraventricular tachycardia) Acute Troponin I above reference range Acute
--- NOTE | 2018-10-13 13:05 | PDCARPN ---
Cardiology Progress Note Chief Complaint: Patient feels he is doing fine. Assessment/Plan: Assessment: 67-year-old male with history of apical hypertrophic cardiomyopathy, inducible ventricular tachycardia status post implantation dual chamber ICD (11/2017), coronary artery disease (non flow limiting cardiac catheterization 04/2017), and paroxysmal atrial fibrillation. Last seen in our office 10/05/2018 due to noted episodes breakthrough atrial fibrillation with RVR, with rates that following to VF detection zone by his ICD. Fortunately has had no inappropriate shocks. Plan to come in today, with sotalol loading, with recent discontinuation of metoprolol on 10/05/2018. Unfortunately, patient wanted to AFib with RVR with associated symptoms of shortness of breath and fatigue. Upon arrival to the ED, EKG confirmed AFib AFib with RVR with ventricular rates up to 160 BPM. He was treated with 1 dose of IV metoprolol, and started on sotalol 80 mg p.o. Twice daily. Did self convert around 7:00 a.m. On a.m. of 04/2019. 10/13/2018: Patient reporting no adverse reaction since starting sotalol. Denies of any further palpitations suggesting of atrial fibrillation. Continue cardiac monitoring noting a paced with intrinsic ventricular response. Patient noted to have 4 beat run of monomorphic nonsustained ventricular tachycardia last evening, asymptomatic. Dr Flores reviewed 11:00 p.m. EKG from last evening, he has okayed a.m. Dose of sotalol. He measured QTC to be 480. Laboratories today showing potassium of 4.6, magnesium 2.0. Plan: 1. Paroxysmal atrial fibrillation: Maintaining sinus rhythm. Continue on sotalol loading at 80 mg PO twice daily. Will need 1 more dose this evening followed by 2 hr post dosing electrocardiogram. Continue on anticoagulation of Eliquis. Electrolyte renal functions within normal limits. 2. Nonsustained monomorphic ventricular tachycardia: 4 beat episode noted last night. He has known history of nonsustained VT. Asymptomatic. Potassium magnesium within normal limits. Continue sotalol loading. Patient has AICD. 3. Apical hypertrophic cardiomyopathy: Shows no signs of heart failure. Sotalol loading as mentioned above. Remote history of AICD. 4. Coronary artery disease: Denies of any chest pain or pressure. Noted to be non flow limiting off of previous cardiac catheterization. Denies of any chest pain or pressure suggesting ischemia. Currently not on anti-platelet therapy due to being on full anticoagulation of Eliquis. Secondary risk prevention with atorvastatin. 5. Hyperlipidemia: Resume on home dose of atorvastatin. 6. GERD: Resumed home dosage of proton pump inhibitor and p.r.n. Dose of H2 lucia. 10/13/18 13:02 Subjective: Denies of any chest pain pressure, shortness of breath, lightheadedness, palpitations, near-syncope, or syncopal events. Reporting no symptoms suggestive of TIA or CVA. Reviewed/Discussed With: hospitalist (Dr Cintron), other (Dr Flores) Objective: Vital Signs (8 Hrs) Temp Pulse Resp BP Pulse Ox 10/13/18 11:47 37.0 C 66 14 121/76 H 97 10/13/18 07:30 36.6 C 66 18 135/74 H 96 Intake/Output (24 Hrs) 10/12/18 10/13/18 10/14/18 05:59 05:59 05:59 Intake Total 1165 Balance 1165 Intake: Oral (ml) 1150 IV Infused (ml) 15 Other: Weight 66.814 kg Number of Voids Toilet 2 Result Diagrams: 10/12/18 05:20 10/14/18 03:10 - Physical Exam Constitutional: WDWN, no apparent distress Ears, Nose, Mouth, Throat: moist mucous membranes Cardiovascular: regular rate and rhythm, no murmurs, pulses symmetric bilat, No jugular vein distention, No carotid bruit Peripheral Pulses: 2+: carotid (R), carotid (L), dorsalis-pedis (R), dorsalis- pedis (L) Respiratory: clear to auscultate bilat, no crackles, no wheezes Gastrointestinal: normoactive bowel sounds Skin: warm, no edema Neurologic: AAOx3 Psychiatric: cooperative, interactive, following commands ICD10 Worksheet Patient Problems: Problems Problem Status Onset SVT (supraventricular tachycardia) Acute Troponin I above reference range Acute Atrial fibrillation Acute
--- NOTE | 2018-10-13 13:37 | CPEKG ---
Test Reason : OPEN Blood Pressure : / mmHG Vent. Rate : 163 BPM Atrial Rate : 194 BPM P-R Int : 095 ms QRS Dur : 088 ms QT Int : 311 ms P-R-T Axes : 200 018 187 degrees QTc Int : 513 ms Atrial fibrillation with rapid V-rate Ventricular premature complex Minimal ST depression, inferior leads Nonspecific T abnormalities, diffuse leads Confirmed by Bushra Marie ([id number]) on 10/13/2018 1:37:08 PM Referred By: Rogelio Rea Confirmed By:Bushra Marie
--- NOTE | 2018-10-13 20:15 | CPEKG ---
Test Reason : OPEN Blood Pressure : / mmHG Vent. Rate : 060 BPM Atrial Rate : 060 BPM P-R Int : 144 ms QRS Dur : 095 ms QT Int : 521 ms P-R-T Axes : 073 045 164 degrees QTc Int : 521 ms Atrial-paced rhythm Probable LVH with secondary repol abnrm Prolonged QT interval Confirmed by Franc Vergara ([id number]) on 10/13/2018 8:15:40 PM Referred By: Petey Barajas Confirmed By:Franc Vergara
[2018-10-14 07:17] VITALS: BP 128/77
[2018-10-14] MEDS: CYANO/VITAMIN B12 1000 MCG TAB PO SCH (08:01)
[2018-10-14] MEDS: ATORVASTATIN CALCIUM 20 MG TAB PO SCH (08:01)
[2018-10-14] MEDS: PANTOPRAZOLE SODIUM 40 MG TAB PO SCH (08:01)
[2018-10-14] MEDS: APIXABAN 5 MG TAB PO SCH (08:01)
[2018-10-14] MEDS: SOTALOL HCL 80 MG TAB PO SCH (09:01)
--- NOTE | 2018-10-14 09:50 | ASMTLACE ---
LACE Length of stay for Answers: 2 days current admission Acuity / Level of Answers: No Care: Did the patient have an inpatient admission? Comorbidities - select Answers: Previous myocardial all that apply infarction Other Notes: AFib # of Emergency department Answers: 1-2 visits in the last 6 months Score: 5 Date Signed: 10/14/2018 09:50 AM Electronically Signed By:Heidi Russo RN
--- NOTE | 2018-10-14 09:53 | ASDISCHSUM ---
Discharge Information Plan Status:Home with No Needs Medically Cleared to Leave:10/14/2018 Discharge Date:10/14/2018 CM D/C Disposition:Home, Routine, Self-Care ADT D/C Disposition:Home, Routine, Self-Care Projected Discharge Date:10/14/2018 Transportation at D/C: Discharge Delay Reason: Follow-Up Date:10/14/2018 Discharge Slot: Final Diagnosis: Placement Information Patient Contact Information Contact Name:LOUIS Relationship:Life Partner Address:[address] City:[place] Alternate Phone: [facility]/Zip Code:[place] [address] Email: Financial Information Financial Class:Medicare Primary Plan Desc:MEDICARE OUTPATIENT Primary Plan Number:[id number] [facility] Secondary Plan Number:[id number] Assessment Information LACE LACE Length of stay for Answers: 2 days current admission Acuity / Level of Answers: No Care: Did the patient have an inpatient admission? Comorbidities - select Answers: Previous myocardial all that apply infarction Other Notes: AFib # of Emergency department Answers: 1-2 visits in the last 6 months Score: 5 Date Signed: 10/14/2018 09:50 AM Electronically Signed By:Heidi Russo RN [facility] CM Progress Note CM Note CM Note Notes: Pts case discussed in tx rounds. Pt is a 67 y/o man admitted for tachycardia. Pt will most likely d/c without any needs when medically stable. No therapies ordered at this time. CM available for changes. Plan: Independent Date Signed: 10/12/2018 11:13 AM Electronically Signed By:KRISTOPHER Pride Case Management Discharge Plan Note Case Management Discharge Discharge Order Complete? Answers: Yes Patient to Obtain Answers: via Family Medications Transportation Arranged Answers: Family/Friends Discharge Comments Notes: 10/14/2018 Case Management Note Pt to discharge independent with follow up as directed. Date Signed: 10/14/2018 09:51 AM Electronically Signed By:Heidi Russo RN Intervention Information Intervention Type:*Incorrect Registration Date of Service:10/12/2018 07:19 AM Patient Type:Observation Staff Member:SOCORRO Griffiths Courtney Hours: Discipline: Severity: Comment: Intervention Type:*JENNY-Signed Date of Service:10/12/2018 10:46 AM Patient Type:Observation Staff Member:Soha Loera Hours: Discipline: Severity: Comment:
--- NOTE | 2018-10-14 10:45 | GDS ---
[f rep st] DISCHARGE SUMMARY ADMISSION DIAGNOSES: 1. Paroxysmal atrial fibrillation with rapid ventricular response. 2. History of nonsustained ventricular tachycardia. 3. Apical hypertrophic cardiomyopathy. 4. Coronary artery disease. 5. Hyperlipidemia. 6. Gastroesophageal reflux disease. DISCHARGE DIAGNOSES: 1. Paroxysmal atrial fibrillation. 2. History of nonsustained ventricular tachycardia with remote AICD implantation. 3. Apical hypertrophic cardiomyopathy. 4. Coronary artery disease. 5. Hyperlipidemia. 6. Gastroesophageal reflux disease. CONSULTS DURING HOSPITALIZATION: Dr. Cintron of hospitalist services. PROCEDURES PERFORMED DURING HOSPITALIZATION: Serial electrocardiograms for sotalol loading. BRIEF HISTORY: Please see H and P and Cardiology consultation notes. Briefly, the patient is a 67-year-old male with history of paroxysmal atrial fibrillation. He has been noted when he goes into atrial fibrillation, he has significantly rapid rates. At points, his ventricular rate is so high that it does go into his VT zone for his AICD. He has had no therapeutic shocks, but has had ATP therapy due to this. He has recently seen Dr. Flores in office and it was decided for him to come in to be taken off his beta-lucia, metoprolol and start on sotalol loading to attempt to see of antiarrhythmic therapy would help with his PAF with RVR. Unfortunately, early in the morning, prior to his expected admission, he did go into atrial fibrillation with RVR, requiring him to go to the emergency department. HOSPITAL COURSE: The patient was admitted to the ED. Electrocardiogram was done at the time with his palpitations, showing that he was in atrial fibrillation with RVR. The patient was reporting fatigue symptoms and shortness of breath. The patient was given 1 dose of IV metoprolol 5 mg and given a dose of sotalol and soon self-converted back into sinus rhythm. At that point, he was admitted up to PCU and did undergo sotalol loading with 2- hour post-dosing electrocardiograms. He has tolerated the drug well. He has been noted, on continuous telemetry monitoring, to have brief episodes of 4 to 5 beats of monomorphic nonsustained ventricular tachycardia, which he is known to have and hence, he has a defibrillator. He is up and walking in the unit without difficulties. Reporting no chest pain, pressure, or symptoms suggesting of ischemia. PHYSICAL EXAMINATION: Done today. GENERAL: Thin, well-groomed male. He is alert and oriented to person, place, time and situation. He appears to be under no acute distress. VITAL SIGNS: Current vital signs are blood pressure of 128/77, heart rate of 60, A-paced with V-intrinsic rhythm. Respirations are 18, saturating 98% on room air, temperature 36.8 degrees Celsius. HEENT: Head is normocephalic. Lips and tongue are pink and moist with no signs of cyanosis. Conjunctivae are pink. NECK: Trachea is midline, + 2 carotid pulses bilateral. No auscultated bruits. No jugular vein distention. RESPIRATORY: Lungs are clear to auscultation. No rhonchi, rales, or wheezes. No accessory muscle use. No intercostal muscle retraction noted. CARDIAC: Regular rate, regular rhythm, S1, S2. No S3, S4, gallops, rubs, or murmurs noted. ABDOMEN: Soft, nontender. Bowel sounds x4 quadrants. No organomegaly. No palpable masses. SKIN: [place], warm and dry. No cyanosis, no clubbing, no peripheral edema. VASCULAR: +2 carotids bilaterally, +2 radials bilaterally, +1 dorsal pedal and posterior tibial pulses bilaterally. LABORATORY STUDIES: Laboratory studies drawn today showing a sodium of 136, potassium 4.3, chloride 103, CO2 25, BUN 19, creatinine 0.9, glucose 79, calcium 9.0, magnesium 2.1. STUDIES: The patient's most recent electrocardiogram, which was done last night at 2300, showing atrial-paced rhythm with intrinsic ventricular response. Per Dr. Flores, his QTc was 500 milliseconds, in which he feels is fine for him to continue on sotalol loading, feeling that his prolonged QTc, is more due to his hypertrophic cardiomyopathy. DISCHARGE DISPOSITION: The patient will be discharged to home in stable condition. He is under no activity restrictions. DISCHARGE MEDICATIONS: Please see discharge med reconciliation sheet. Note, the patient's metoprolol succinate has been discontinued and he will continue on sotalol at 80 mg p.o. b.i.d. He remains on full anticoagulation with Eliquis. DISCHARGE INSTRUCTIONS: Post-sotalol loading instructions discussed with the patient. He verbalizes understanding. The patient does have a followup appointment scheduled with Dr. Flores in 2 weeks at [facility]. The patient was told if any problems or concerns come up post discharge, he is to notify our office or return to the hospital. Total time spent on discharge, greater than 30 minutes. ADDENDUM Syd Flores MD - Agree wtih Mr Godfrey's assessment. Uneventful inpatient sotalol load for atrial fibrillation with RVR resulting in inappropriate tachy detections via ICD. /[id number]/MODL MTDD
== END 2018-10-14 09:55 | disposition home or self-care (01) ==
LOC: INTOOBSV 05:36 → F2W 06:40
PROVIDERS: ADMIT Student in an Organized Health Care Education/Training Program; ATTEND Internal Medicine Cardiovascular Disease
DX: I48.0 Paroxysmal atrial fibrillation (principal); I25.10 Atherosclerotic heart disease of native coronary artery without angina pectoris; I42.2 Other hypertrophic cardiomyopathy; I25.2 Old myocardial infarction; E78.5 Hyperlipidemia, unspecified; K21.9 Gastro-esophageal reflux disease without esophagitis; Z95.810 Presence of automatic (implantable) cardiac defibrillator; Z79.01 Long term (current) use of anticoagulants; Z96.611 Presence of right artificial shoulder joint
CPT/HCPCS: 93005; 96374; 99285; G0378

== ENCOUNTER 2018-12-08 10:49 | Observation (INO) | payer OTHER | END 2018-12-09 11:52 | disposition home or self-care (01) | LOC: FCATH 10:49 → F2N 15:14 ==